=== PATIENT | male | born 1990 ===

== ENCOUNTER 2020-07-17 20:56 | Emergency (ER) | payer OTHER, SELFPAY ==
--- NOTE | ~2020-07-17 | XR_ITS ---
EXAMINATION: XR CHEST CLINICAL INFORMATION: Chest pain COMPARISON: Chest 10/20/2019 TECHNIQUE: Frontal view of the chest was obtained. FINDINGS: No significant abnormality is noted involving the heart, lungs, mediastinum, bony thorax or soft tissues. XR/XR chest 1V IMPRESSION: Unremarkable chest examination.
--- NOTE | 2020-07-17 21:14 | ECG_ITS ---
Test Reason : CP Blood Pressure : / mmHG Vent. Rate : 069 BPM Atrial Rate : 069 BPM P-R Int : 116 ms QRS Dur : 096 ms QT Int : 380 ms P-R-T Axes : 014 073 053 degrees QTc Int : 407 ms Normal sinus rhythm Nonspecific ST abnormality Abnormal ECG When compared with ECG of 20-OCT-2019 20:29, No significant change was found Referred By: Generic ED Physician Electronically Signed By:JOCELIN FRIAS MD
[2020-07-17 21:46] VITALS: BP 105/67; PULSE 74; RESP 18; TEMP 36.8; O2SAT 97; BMI 22.2
[2020-07-17 23:13] LABS: MANUAL DIFF FLAG NO
[2020-07-17 23:15] LABS: Basophils Percent Auto 0.4 % (0-2); Eosinophils Absolute Auto 0.2 X10*3/uL (0.0-0.4); Eosinophils Percent Auto 3.1 % (0-4); Hematocrit 39.5 % (42-52); Hemoglobin 13.8 g/dl (14.0-18.0); Imm Gran Abs Auto 0.02 X10*3/uL (0.00-0.03); Imm Gran Pct Auto 0.3 % (0.0-0.4); Lymphocytes Absolute Auto 1.7 X10*3/uL (1.2-4.9); Lymphocytes Percent Auto 22.6 % (20-40); Mean Corpuscular HGB Conc 34.9 g/dl (31.0-36.0); Mean Corpuscular Hemoglobin 32.2 pg (27.0-33.0); Mean Corpuscular Volume 92.3 fL (80-98); Mean Platelet Volume 10.8 fL (9.4-12.4); Monocytes Absolute Auto 0.7 X10*3/uL (0.1-1.2); Monocytes Percent Auto 9.3 % (2-11); Neutrophils Absolute Auto 4.7 X10*3/uL (2.0-8.3); Neutrophils Percent Auto 64.3 % (45-73); Platelet Count 157 X10*3/uL (160-400); Red Blood Count 4.28 X10*6/uL (4.60-5.80); Red Cell Distribution Width 11.6 % (11.0-16.0); White Blood Count 7.4 X10*3/uL (4.8-10.8)
[2020-07-17 23:39] LABS: Anion Gap 11 (12-20); Blood Urea Nitrogen 18 mg/dL (9-16); Calcium 9.1 mg/dL (8.4-10.2); Carbon Dioxide 26 mmol/L (22-29); Chloride 106 mmol/L (96-108); Creatinine Clr Calc Pharmacy 110.2; Estimated Glomerular Filt Rate > 60; Glucose Random 83 mg/dL (60-115); Potassium 3.9 mmol/L (3.3-5.1); Sodium 139 mmol/L (135-145)
[2020-07-17 23:46] LABS: Troponin-I High Sensitivity < 3.5 ng/L (<3.5-35.0)
== END 2020-07-18 03:15 | disposition left against medical advice (07) ==
PROVIDERS: Emergency Provider Emergency Medicine; PCP Internal Medicine
DX: R07.9 Chest pain, unspecified (principal); J30.2 Other seasonal allergic rhinitis
CPT/HCPCS: 36415; 71045; 80048; 84484; 85025; 93005; 99283

== ENCOUNTER 2020-08-13 13:32 | Emergency (ER) | payer OTHER, SELFPAY ==
--- NOTE | ~2020-08-13 | XR_ITS ---
EXAMINATION: XR SHOULDER, RIGHT CLINICAL INFORMATION: Fall, trauma, pain COMPARISON: Chest radiographs 08/13/2020 TECHNIQUE: Right shoulder is imaged in 3 views. FINDINGS: There is no fracture, dislocation, destructive process. The acromioclavicular alignment is normal. The right lung apex is clear and shows no pneumothorax or pleural reaction. XR/XR shoulder RT min 2V IMPRESSION: Normal right shoulder.
--- NOTE | ~2020-08-13 | CT_ITS ---
EXAMINATION: CT BRAIN AND CT FACIAL BONES WITHOUT CONTRAST. CLINICAL INFORMATION: Right-sided facial pain. Fall. COMPARISON: None TECHNIQUE: 5 mm thin axial and reformatted 2 mm thin sagittal and coronal images of brain were obtained. Subsequently axial 3 mm thin and reformatted 1.5 mm thin sagittal and coronal images of facial bones were obtained. DLP 1019 mGy. FINDINGS: Brain: There is no acute intra-axial, extra-axial bleed, masses or midline shift there is no acute infarction in evolution. The cerda to white matter differences maintained. The lateral ventricles are symmetrical in size and configuration without enlargement. Bone windows reveal no calvarial abnormality. Bilateral paranasal sinuses and mastoid air cells are well-aerated. Facial bones: There is no maxillofacial, nasal or mandibular bone fractures. Bilateral paranasal sinuses and drainage pathways are widely patent. Bilateral mastoid air cells are well-aerated as well. Normal symmetry of bilateral TM joints. The mandible is intact without any fracture or loosening. The soft tissues are normal. Julys cranial vertebral junction, C1 size C2 alignment is normal. The upper cervical spine is normal. Visualized maxillofacial, mandible and nasal soft tissues are normal. CT/CT facial bones wo con IMPRESSION: No acute intracranial process seen. No maxillofacial, nasal bone or mandibular fractures. The soft tissues are normal.
--- NOTE | ~2020-08-13 | XR_ITS ---
EXAMINATION: XR CHEST CLINICAL INFORMATION: Near syncope COMPARISON: Chest radiographs 07/17/2020, 10/20/2019 TECHNIQUE: Chest is imaged in upright AP x2 views and a lateral projection. FINDINGS: The lungs are clear. There is mild hyperinflation versus good inspiratory effort. No bronchiolar wall thickening. There is no pneumothorax, pleural reaction, airspace consolidation, or groundglass opacity. The costophrenic sulci are well-defined. The heart is normal in size. The hilar and mediastinal contours and bony structures are unremarkable. XR/XR chest 2V IMPRESSION: Unremarkable examination.
--- NOTE | ~2020-08-13 | CT_ITS ---
EXAMINATION: CT BRAIN AND CT FACIAL BONES WITHOUT CONTRAST. CLINICAL INFORMATION: Right-sided facial pain. Fall. COMPARISON: None TECHNIQUE: 5 mm thin axial and reformatted 2 mm thin sagittal and coronal images of brain were obtained. Subsequently axial 3 mm thin and reformatted 1.5 mm thin sagittal and coronal images of facial bones were obtained. DLP 1019 mGy. FINDINGS: Brain: There is no acute intra-axial, extra-axial bleed, masses or midline shift there is no acute infarction in evolution. The cerda to white matter differences maintained. The lateral ventricles are symmetrical in size and configuration without enlargement. Bone windows reveal no calvarial abnormality. Bilateral paranasal sinuses and mastoid air cells are well-aerated. Facial bones: There is no maxillofacial, nasal or mandibular bone fractures. Bilateral paranasal sinuses and drainage pathways are widely patent. Bilateral mastoid air cells are well-aerated as well. Normal symmetry of bilateral TM joints. The mandible is intact without any fracture or loosening. The soft tissues are normal. Julys cranial vertebral junction, C1 size C2 alignment is normal. The upper cervical spine is normal. Visualized maxillofacial, mandible and nasal soft tissues are normal. CT/CT head/brain wo con IMPRESSION: No acute intracranial process seen. No maxillofacial, nasal bone or mandibular fractures. The soft tissues are normal.
[2020-08-13 13:46] VITALS: BP 116/84; BP 125/75; PULSE 78; PULSE 92; RESP 14; O2SAT 100; BMI 22.4
--- NOTE | 2020-08-13 13:47 | ECG_ITS ---
Test Reason : SYNCOPE Blood Pressure : / mmHG Vent. Rate : 066 BPM Atrial Rate : 066 BPM P-R Int : 124 ms QRS Dur : 092 ms QT Int : 372 ms P-R-T Axes : 072 057 040 degrees QTc Int : 389 ms Normal sinus rhythm Normal ECG When compared with ECG of 17-JUL-2020 21:24, No significant change was found Referred By: Lore Giles Electronically Signed By:EDGAR RODRIGUEZ
--- NOTE | 2020-08-13 13:51 | ED_ITS ---
HPI - Syncope General Chief Complaint: Syncope Stated Complaint: SYNCOPE Time Seen by Provider: 08/13/20 13:39 Source: patient and EMS Mode of arrival: EMS Limitations: no limitations History of Present Illness HPI narrative: 29 yo male who tells me he was standing in the [employer] when he started to feel lightheaded. He was going to sit down but fell to the ground d/t the dizziness striking his right side of his head, RUE and left hand. Denies LOC. Per EMS bystanders became concerned and threw water on the patient to rouse him. Patient tells me I absolutely did not pass out and remember everything. NO other pre fall symptoms such as palpitations, SOB, weakness, DILL, abdominal pain. No incontinence or shaking noted by bystanders. On arrival patient c/o RUE pain. Deneis DILL, vision changes, neck pain, back pain, chest pain or abdominal pain. Unsure of last tetanus. Per EMS patient initial BG 54. Gave dose of IM glucagon [employer]. Denies substance use. Does take pain medication daily for chronic pain but insure of name. Related Data Allergies Allergy/AdvReac Type Severity Reaction Status Date / Time APPLE JUICE AdvReac Unknown DIARRHEA Uncoded 11/14/19 16:44 Review of Systems Review of Systems: Yes all other systems are reviewed and are negative Constitutional: Constitutional: Reports no additional constitutional complaints, Denies body ache(s), Denies chills, Denies fever(s), Denies headache(s) and Denies weakness Eyes: Eyes: Reports no additional eye complaints and Denies change in vision ENT: Reports system reviewed and no additional complaints, except as documented, Denies dizziness, Denies headache(s), Denies nasal congestion, Denies nasal discharge and Denies neck pain Cardiovascular: Cardiovascular: Reports no additional cardiovascular complaints, Denies chest pain, Denies leg edema and Denies dyspnea Respiratory: Respiratory: Reports no additional respiratory complaints, Denies cough and Denies dyspnea Gastrointestinal: Gastrointestinal: Reports no additional gastrointestinal complaints, Denies abdominal pain, Denies diarrhea, Denies nausea and Denies vomiting Genitourinary: Genitourinary: Denies urinary incontinence Musculoskeletal: Musculoskeletal: Reports no additional musculoskeletal complaints, Denies back pain, Reports arthralgias, Denies joint swelling, Denies neck pain, Denies numbness and Denies tingling Integumentary/Breasts: Skin/Breast: Reports system reviewed and no additional complaints, except as docu and Denies rash Neurologic: Reports system reviewed and no additional complaints, except as documented, Denies Abnormal speech present, Denies dizziness, Denies headache(s), Denies numbness, Denies tingling and Denies weakness PMFSH Past Medical History Attestation statement: The following information was validated with the patient. Source: old records reviewed and nursing notes reviewed Medical History Asthma Social History Social History Advance Directives: Yes Advance Directives Information Provided: Yes Advance Directives on File: No Physical Exam Vital Signs: Vital Signs: Last Vital Signs Pulse 78 08/13/20 13:46 Resp 14 08/13/20 13:46 BP 125/75 08/13/20 13:46 Pulse Ox 100 08/13/20 13:46 Body Mass Index 22.4 Const: General: cooperative, healthy appearing, comfortable and no acute distress Orientation/consciousness: patient oriented x3 Limitations: no limitations HENMT: Head: Yes normal to inspection Head images: 1. small abrasion, No laceration/crepitus or bogginess Ears: hearing grossly normal bilaterally General nose exam: Normal external nose present Face and sinus: Yes normal facial exam Mouth: Normal oral and palatal mucosa present Throat: Yes posterior oropharynx normal Eyes: General: appearance normal, both eyes and all related structures Pu pils: Equal, round and reactive pupils present Neck: Other: No midline tenderness/step offs or deformities Neck: Yes normal visual inspection, Yes full ROM and Yes no lymphadenopathy Chest: Chest palpation & inspection: normal inspection of the chest Chest/axillae images: 1. abrasion with mild tenderness FROM Resp: Effort & Inspection: normal respiratory effort Auscultation: clear to auscultation bilaterally Cardio: Rate: regular rate Rhythm: regular rhythm Peripheral pulses: Peripheral pulses 2+ throughout GI: Inspection: Yes normal to inspection Palpation (GI): Soft to palpation and nontender Auscultation: normal bowel sounds Back/Spine/Pelvis: Thoracic/Lumbar Spine: thoracic and lumbar spine normal to inspection Skin: General skin exam: no rashes or lesions noted Neuro: General: patient oriented x3, no focal motor deficits and normal sensation to monofilament Cranial nerves: Yes CN's II-XII intact bilaterally, Yes Equal, round and reactive pupils present, Yes Bilaterally intact EOM present, Yes Nystagmus not present, Yes Normal facial strength present and Yes Midline tongue present Cognition (Neuro): normal cognition Speech: No Abnormal speech present Motor exam (neuro): 5/5 motor strength present throughout Sensory Exam: Normal double simultaneous stimulation for sensation Coordination: [id number] test normal and [id number] test normal Extrem: General: Yes normal to inspection, Yes no pedal edema and Yes no calf tenderness Elbow/forearm/wrist images: 1. abrasion with FROM 2. small abrasion w/ FROM Course Course Course Narrative: 29 yo male here after what was initially reported as syncope but after assessing patient he tells me I did pass out and has memory of entire event. Preceded by feeling lightheaded and dizzy with no other symptoms. Mild hypoglycemia on arrival, received glucagon by ems and approved on arrival. Multiple abrasions noted. Normal neuro exam. HD stable. Will need labs, EKG, CXR/shoulder x-ray, CT head/facial bones. 1600-Imaging of head/face/chest and right shoulder all unremarkable. EKG and troponin with no ischemic findings. All other labs negative. Patient A&Ox4. Mom here at bedside. Patient insistent no complete syncope and remembers all that happened. Abrasions cleaned by nursing. Blood sugar low for EMS but several blood sugars done here and stable. Reviewed small, frequent meals with patient. He tells me he ate dinner last night then worked 3rd shift without eating before leaving work and going to [employer]. Reviewed worrisome signs/symptoms with patient and when to return to ED. Comfortable with discharge home. MDM - Syncope MDM Narrative Medical decision making narrative: electrolyte abnormality, acs Differential Diagnosis Differential diagnosis: Likely syncope due to orthostatic hypotension and vasovagal syncope Medical Records Attestation: I reviewed the patient's medical records. Lab Data Attestation: I reviewed the patient's lab results. Result diagrams: 08/13/20 14:54 08/13/20 14:54 Labs: Lab Results 08/13/20 08/13/20 08/13/20 Range/Units 13:48 14:48 14:54 WBC 6.6 (4.8-10.8) X10*3/uL RBC 4.99 (4.60-5.80) X10*6/uL Hgb 15.8 (14.0-18.0) g/dl Hct 47.1 (42-52) % MCV 94.4 (80-98) fL MCH 31.7 (27.0-33.0) pg MCHC 33.5 (31.0-36.0) g/dl RDW 11.8 (11.0-16.0) % Plt Count 187 (160-400) X10*3/uL MPV 10.4 (9.4-12.4) fL Immature Gran % (Auto) 0.2 (0.0-0.4) % Neut % (Auto) 72.6 (45-73) % Lymph % (Auto) 14.1 L (20-40) % [place] % (Auto) 7.3 (2-11) % Eos % (Auto) 5.0 H (0-4) % Baso % (Auto) 0.8 (0-2) % Lymph # (Auto) 0.9 L (1.2-4.9) X10*3/uL [place] # (Auto) 0.5 (0.1-1.2) X10*3/uL Eos # (Auto) 0.3 (0.0-0.4) X10*3/uL Baso # (Auto) 0.1 (0.0-0.2) X10*3/uL Abs Immat Gran (auto) 0.01 (0.00-0.03) X10*3/uL Absolute Neuts (auto) 4.8 (2.0-8.3) X10*3/uL Absolute Nucleated RBC 0.000 (0.0-0.012) X10*3/uL Nucleated RBC % (auto) 0.0 (0.0-0.2) /100WBC Sodium (135-145) mmol/L Potassium (3.3-5.1) mmol/L Chloride (96-108) mmol/L Carbon Dioxide (22-29) mmol/L Anion Gap (12-20) BUN (9-16) mg/dL Creatinine (0.5-1.4) mg/dL Estim Creat Clear Calc Estimated GFR POC Glucose 86 98 (60-115) mg/dL Random Glucose (60-115) mg/dL Lactic Acid (0.5-2.0) mmol/L Calcium (8.4-10.2) mg/dL Magnesium (1.6-2.6) mg/dL Total Bilirubin (0.0-1.0) mg/dL Direct Bilirubin (0.0-0.5) mg/dL AST (5-37) U/L ALT (0-40) U/L Alkaline Phosphatase (39-117) U/L Troponin I High Sens (<3.5-35.0) ng/L Total Protein (6.5-8.0) g/dL Albumin (3.5-5.0) g/dL 08/13/20 08/13/20 08/13/20 Range/Units 14:54 14:54 14:54 WBC (4.8-10.8) X10*3/uL RBC (4.60-5.80) X10*6/uL Hgb (14.0-18.0) g/dl Hct (42-52) % MCV (80-98) fL MCH (27.0-33.0) pg MCHC (31.0-36.0) g/dl RDW (11.0-16.0) % Plt Count (160-400) X10*3/uL MPV (9.4-12.4) fL Immature Gran % (Auto) (0.0-0.4) % Neut % (Auto) (45-73) % Lymph % (Auto) (20-40) % [place] % (Auto) (2-11) % Eos % (Auto) (0-4) % Baso % (Auto) (0-2) % Lymph # (Auto) (1.2-4.9) X10*3/uL [place] # (Auto) (0.1-1.2) X10*3/uL Eos # (Auto) (0.0-0.4) X10*3/uL Baso # (Auto) (0.0-0.2) X10*3/uL Abs Immat Gran (auto) (0.00-0.03) X10*3/uL Absolute Neuts (auto) (2.0-8.3) X10*3/uL Absolute Nucleated RBC (0.0-0.012) X10*3/uL Nucleated RBC % (auto) (0.0-0.2) /100WBC Sodium 141 (135-145) mmol/L Potassium 4.6 (3.3-5.1) mmol/L Chloride 104 (96-108) mmol/L Carbon Dioxide 30 H (22-29) mmol/L Anion Gap 12 (12-20) BUN 13 (9-16) mg/dL Creatinine 0.88 (0.5-1.4) mg/dL Estim Creat Clear Calc 131.1 Estimated GFR > 60 POC Glucose (60-115) mg/dL Random Glucose 65 (60-115) mg/dL Lactic Acid 0.9 (0.5-2.0) mmol/L Calcium 10.2 D (8.4-10.2) mg/dL Magnesium 1.9 (1.6-2.6) mg/dL Total Bilirubin 1.2 H (0.0-1.0) mg/dL Direct Bilirubin 0.4 (0.0-0.5) mg/dL AST 13 (5-37) U/L ALT 9 (0-40) U/L Alkaline Phosphatase 54 (39-117) U/L Troponin I High Sens < 3.5 (<3.5-35.0) ng/L Total Protein 7.2 (6.5-8.0) g/dL Albumin 4.6 (3.5-5.0) g/dL Imaging Data Chest x-ray: Attestation: I personally reviewed and interpreted this imaging study as follows: Radiologist's impression: EXAMINATION: XR CHEST CLINICAL INFORMATION: Near syncope COMPARISON: Chest radiographs 07/17/2020, 10/20/2019 TECHNIQUE: Chest is imaged in upright AP x2 views and a lateral projection. FINDINGS: The lungs are clear. There is mild hyperinflation versus good inspiratory effort. No bronchiolar wall thickening. There is no pneumothorax, pleural reaction, airspace consolidation, or groundglass opacity. The costophrenic sulci are well-defined. The heart is normal in size. The hilar and mediastinal contours and bony structures are unremarkable. XR/XR chest 2V IMPRESSION: Unremarkable examination. shoulder right xray: Attestation: I personally reviewed and interpreted this imaging study as follows: Radiologist's impression: EXAMINATION: XR SHOULDER, RIGHT CLINICAL INFORMATION: Fall, trauma, pain COMPARISON: Chest radiographs 08/13/2020 TECHNIQUE: Right shoulder is imaged in 3 views. FINDINGS: There is no fracture, dislocation, destructive process. The acromioclavicular alignment is normal. The right lung apex is clear and shows no pneumothorax or pleural reaction. XR/XR shoulder RT min 2V IMPRESSION: Normal right shoulder. CT head/facial bones: Attestation: I personally reviewed and interpreted this imaging study as f apurvas: Radiologist's impression: FINDINGS: Brain: There is no acute intra-axial, extra-axial bleed, masses or midline shift there is no acute infarction in evolution. The cerda to white matter differences maintained. The lateral ventricles are symmetrical in size and configuration without enlargement. Bone windows reveal no calvarial abnormality. Bilateral paranasal sinuses and mastoid air cells are well-aerated. Facial bones: There is no maxillofacial, nasal or mandibular bone fractures. Bilateral paranasal sinuses and drainage pathways are widely patent. Bilateral mastoid air cells are well-aerated as well. Normal symmetry of bilateral TM joints. The mandible is intact without any fracture or loosening. The soft tissues are normal. Julys cranial vertebral junction, C1 size C2 alignment is normal. The upper cervical spine is normal. Visualized maxillofacial, mandible and nasal soft tissues are normal. CT/CT facial bones wo con IMPRESSION: No acute intracranial process seen. No maxillofacial, nasal bone or mandibular fractures. The soft tissues are normal. ECG Data Attestation: I personally reviewed and interpreted this ECG as follows: ECG interpretation date: 08/13/20 ECG interpretation time: 14:04 Interpretation: NSR with rate 66, normal pr, normal qrs, normal qtc Discharge Plan Discharge Clinical Impression: Near syncope, Abrasion, Contusion of right shoulder Patient Disposition: Home, Self-Care Instructions: Contusion in Adults (ED), Abrasion (ED), Near Syncope (ED) Additional Instructions: Your x-rays of your shoulder and chest showed no bony abnormality. CT scan of your head and face also were negative Lab work and EKG looked normal His blood sugar was mildly low for the ambulance but here it has been normal Eat small, frequent meals Keep abrasions clean and dry with topical antibiotic ointment Referrals: Sid Darshana,Susy, MD [Primary Care Provider] - 2 days Stand Alone Forms: Work/School Release Interventions: ED Discharge Assessment Last Done: 08/13/20 16:30 Discharge Date/Time: 08/13/20 16:31
[2020-08-13 14:01] LABS: Glucose, Whole Blood 86 mg/dL (60-115)
[2020-08-13 14:51] LABS: Glucose, Whole Blood 98 mg/dL (60-115)
[2020-08-13 14:59] LABS: MANUAL DIFF FLAG NO
[2020-08-13 15:04] LABS: Basophils Absolute Auto 0.1 X10*3/uL (0.0-0.2); Basophils Percent Auto 0.8 % (0-2); Eosinophils Absolute Auto 0.3 X10*3/uL (0.0-0.4); Hematocrit 47.1 % (42-52); Hemoglobin 15.8 g/dl (14.0-18.0); Imm Gran Abs Auto 0.01 X10*3/uL (0.00-0.03); Imm Gran Pct Auto 0.2 % (0.0-0.4); Lymphocytes Absolute Auto 0.9 X10*3/uL (1.2-4.9); Lymphocytes Percent Auto 14.1 % (20-40); Mean Corpuscular HGB Conc 33.5 g/dl (31.0-36.0); Mean Corpuscular Hemoglobin 31.7 pg (27.0-33.0); Mean Corpuscular Volume 94.4 fL (80-98); Mean Platelet Volume 10.4 fL (9.4-12.4); Monocytes Absolute Auto 0.5 X10*3/uL (0.1-1.2); Monocytes Percent Auto 7.3 % (2-11); Neutrophils Absolute Auto 4.8 X10*3/uL (2.0-8.3); Neutrophils Percent Auto 72.6 % (45-73); Platelet Count 187 X10*3/uL (160-400); Red Blood Count 4.99 X10*6/uL (4.60-5.80); Red Cell Distribution Width 11.8 % (11.0-16.0); White Blood Count 6.6 X10*3/uL (4.8-10.8)
[2020-08-13 15:31] LABS: Lactic Acid 0.9 mmol/L (0.5-2.0)
[2020-08-13] MEDS: Diphth,Pertus(ACell),Tet Adult 0.5 ML SYRINGE IM (15:34)
[2020-08-13 15:36] LABS: Alanine Aminotransferase 9 U/L (0-40); Albumin Level 4.6 g/dL (3.5-5.0); Alkaline Phosphatase 54 U/L (39-117); Anion Gap 12 (12-20); Aspartate Amino Transferase 13 U/L (5-37); Bilirubin Direct 0.4 mg/dL (0.0-0.5); Bilirubin Total 1.2 mg/dL (0.0-1.0); Blood Urea Nitrogen 13 mg/dL (9-16); Calcium 10.2 mg/dL (8.4-10.2); Carbon Dioxide 30 mmol/L (22-29); Chloride 104 mmol/L (96-108); Creatinine Clr Calc Pharmacy 131.1; Estimated Glomerular Filt Rate > 60; Glucose Random 65 mg/dL (60-115); Magnesium 1.9 mg/dL (1.6-2.6); Potassium 4.6 mmol/L (3.3-5.1); Sodium 141 mmol/L (135-145); Total Protein 7.2 g/dL (6.5-8.0)
[2020-08-13 15:41] LABS: Troponin-I High Sensitivity < 3.5 ng/L (<3.5-35.0)
== END 2020-08-13 16:31 | disposition home or self-care (01) ==
PROVIDERS: Nurse Practitioner Family; Emergency Provider Emergency Medicine; PCP Internal Medicine
DX: R55 Syncope and collapse (principal); S00.211A Abrasion of right eyelid and periocular area, initial encounter; S40.011A Contusion of right shoulder, initial encounter; I95.9 Hypotension, unspecified; J45.909 Unspecified asthma, uncomplicated; W19.XXXA Unspecified fall, initial encounter; Y92.513 Shop (commercial) as the place of occurrence of the external cause; Y93.9 Activity, unspecified; Y99.9 Unspecified external cause status
CPT/HCPCS: 36415; 70450; 70486; 71046; 73030; 80048; 80076; 82947; 83605; 83735; 84484; 85025; 90471; 90715; 93005; 99283; 99285

== ENCOUNTER 2021-01-05 11:55 | Outpatient (REF) | payer OTHER, SELFPAY ==
[2021-01-06 09:29] LABS: HBS Num1 13.81 mIU/mL (0-7.99); HBsAGNum1 0.16 S/CO (0.00-0.99); HIV AB/AG Nonreactive (Nonreactive); HIV Num 1 0.05 S/CO (0.00-0.99); Hepatitis B Surface Antigen Negative (Negative); ~HepC Num1 0.05 S/CO (0.00-0.79); ~Hepatitis B Surface Antibody REACTIVE (Nonreactive); ~Hepatitis C Antibody Nonreactive (Nonreactive)
[2021-01-06 09:44] LABS: HBc Num1 0.06 S/CO (0.00-0.79); Hepatitis B Core Antibody Nonreactive (Nonreactive)
[2021-01-06 10:11] LABS: Syphilis Screen Reactive (Nonreactive)
[2021-01-19 13:31] LABS: T.Pallidum Particle Agg Test Reactive (Nonreactive)
== END 2021-01-05 11:56 | disposition home or self-care (01) ==
LOC: HO.LAB 11:55
PROVIDERS: Visit Provider Nurse Practitioner Family
DX: Z01.84 Encounter for antibody response examination (principal); Z11.4 Encounter for screening for human immunodeficiency virus [HIV]; Z11.3 Encounter for screening for infections with a predominantly sexual mode of transmission; Z11.59 Encounter for screening for other viral diseases
CPT/HCPCS: 36415; 86592; 86704; 86706; 86780; 86803; 87340; 87389

== ENCOUNTER 2021-01-11 15:33 | Outpatient (REF) | payer OTHER, SELFPAY ==
[2021-01-12 09:20] LABS: CT PCR NOT DETECTED (Not Detect.); NG PCR NOT DETECTED (Not Detect.)
== END 2021-01-11 15:34 | disposition home or self-care (01) ==
LOC: HO.LAB 15:33
PROVIDERS: PCP Internal Medicine; Visit Provider Nurse Practitioner Family
DX: Z11.3 Encounter for screening for infections with a predominantly sexual mode of transmission (principal)
CPT/HCPCS: 87491; 87591

== ENCOUNTER 2021-05-05 08:43 | Outpatient (REF) | payer OTHER, SELFPAY ==
[2021-05-05 10:20] LABS: Syphilis Screen Reactive (Nonreactive)
[2021-05-05 11:48] LABS: CT PCR NOT DETECTED (Not Detect.); NG PCR NOT DETECTED (Not Detect.)
[2021-05-10 19:52] LABS: Treponema pallidum Ab FTA ABS Reactive (Nonreactive)
[2021-05-11 23:27] LABS: Chlamydia Pneumoniae IgA <1:16 titer (<1:16); Chlamydia Pneumoniae IgM <1:10 titer (<1:10); Chlamydia Psittaci IgA <1:16 titer (<1:16); Chlamydia Psittaci IgG <1:64 titer (<1:64); Chlamydia Psittaci IgM <1:10 titer (<1:10); Chlamydia Trachomatis IgA <1:16 titer (<1:16); Chlamydia Trachomatis IgG <1:64 titer (<1:64); Chlamydia Trachomatis IgM <1:10 titer (<1:10)
[2021-05-12 10:58] LABS: RPR Quantitative Reactive 1:2 (Nonreactive); T.Pallidum Particle Agg Test Reactive (Nonreactive)
== END 2021-05-05 08:44 | disposition home or self-care (01) ==
LOC: HO.LAB 08:43
PROVIDERS: Absent Provider Nurse Practitioner Acute Care; PCP Internal Medicine; Visit Provider Internal Medicine
DX: A53.0 Latent syphilis, unspecified as early or late (principal); Z11.3 Encounter for screening for infections with a predominantly sexual mode of transmission
CPT/HCPCS: 36415; 86592; 86631; 86632; 86780; 87491; 87591

== ENCOUNTER 2022-03-25 12:51 | Emergency (ER) | payer OTHER, SELFPAY ==
[2022-03-25 13:12] VITALS: BP 125/80; PULSE 82; RESP 18; TEMP 36.6; O2SAT 99; BMI 21.7
--- NOTE | 2022-03-25 13:15 | ED.GENADULT ---
HPI - General Adult General Chief complaint: Wound/Laceration Stated complaint: Lac on right hand Related Data Allergies Allergy/AdvReac Type Severity Reaction Status Date / Time APPLE JUICE AdvReac Unknown DIARRHEA Uncoded 04/29/21 10:53 [facility] Past Medical History Medical History (Updated 04/29/21 @ 10:55 by Araseli Gilliland MD) Asthma Pain in penis Surgical History No pertinent past surgical history Family History Family History Mother No problems noted. Father No problems noted. Other Family history of diabetes mellitus (DM) Social History Social History Housing: House Alcohol intake: current Alcohol intake frequency: holidays/special occasions only Patient Tobacco Use Status: Current everyday Tobacco user Tobacco use type: Cigarette Cigarettes Per Day: 5 e-Cigarette/Vaping Use: Never Used Second Hand Smoke Exposure: Yes service: No Current occupational status: employed Current occupational exposures/hazards: No Cognitive needs: No Hearing needs: No Vision needs: No Physical Exam ED Vital Signs: Vital Signs - 24 hr 03/25/22 13:12 Temperature 98 F Pulse Rate 82 Respiratory Rate 18 Blood Pressure 125/80 Pulse Oximetry 99 Oxygen Delivery Method Room Air BMI result Body Mass Index 21.7 Course Course Course Narrative: RME performed by Barbara Parrish PA-C. Patient is a 31 year old male presenting to the emergency department with a laceration to his right thumb. Patient will need sutures. Tetanus ordered. Patient placed back in waiting room pending room availability.
--- NOTE | 2022-03-25 14:21 | ED.WOUNDLAC ---
HPI - Wound/Laceration General Chief Complaint: Wound/Laceration Stated Complaint: Lac on right hand Time Seen by Provider: 03/25/22 13:26 Source: patient Mode of arrival: ambulatory Limitations: no limitations History of Present Illness HPI narrative: 31-year-old male presenting to the ER with complaints of a laceration to his right hand near the base of the thumb that occurred last night with a machete when he was practicing martial arts. He denies any thoughts of foreign bodies, bony tenderness, paresthesias or weakness. He reports he is not up-to-date on tetanus. He denies any other injuries complaints or concerns at this time. Onset (ago): day(s) (Last night) Extremity Location: right: hand (Near the base of the thumb) Place: home Patient tetanus UTD: No Context: accidental Associated symptoms: none Treatments prior to arrival: bandage Related Data Previous Rx's Medication Instructions Recorded cephalexin 500 mg capsule 500 mg PO BID 7 days #14 caps 03/25/22 Allergies Allergy/AdvReac Type Severity Reaction Status Date / Time APPLE JUICE AdvReac Unknown DIARRHEA Uncoded 04/29/21 10:53 Review of Systems Review of Systems: Constitutional : No Fever, No Chills, Cardiovascular : No Chest Pain, No SOB Respiratory : No Dyspnea Gastrointestinal : No abdominal pain Musculoskeletal : No Joint Swelling Skin : positive skin laceration, No Foreign bodies, No rash, No surrounding erythema Neuro : No Weakness, No Numbness/tingling Psych : No SI/HI/thoughts of self injury Yes all other systems are reviewed and are negative [facility] Past Medical History Attestation statement: The following information was validated with the patient. Source: old records reviewed and nursing notes reviewed Medical History Asthma Pain in penis Surgical History No pertinent past surgical history Family History Family History Mother No problems noted. Father No problems noted. Other Family history of diabetes mellitus (DM) Social History Social History Housing: House Alcohol intake: current Alcohol intake frequency: holidays/special occasions only Patient Tobacco Use Status: Current everyday Tobacco user Tobacco use type: Cigarette Cigarettes Per Day: 5 e-Cigarette/Vaping Use: Never Used Second Hand Smoke Exposure: Yes Advance Directives: No Advance Directives Information Provided: No service: No Current occupational status: employed Current occupational exposures/hazards: No Cognitive needs: No Hearing needs: No Vision needs: No Physical Exam Vital Signs: Vital Signs: Last Vital Signs Temp 98 F 03/25/22 13:12 Pulse 82 03/25/22 13:12 Resp 18 03/25/22 13:12 BP 125/80 03/25/22 13:12 Pulse Ox 99 03/25/22 13:12 O2 Del Method 03/25/22 13:12 BMI result Body Mass Index 21.7 vital signs have been reviewed as normal and appeared to be correct. Blood pressure normal Heart rate normal. Respiration rate normal. Temperature normal. Oxygen saturation normal. Appearance: Alert. Oriented X3. No acute distress. Head: Normal external exam. Normocephalic. Atraumatic. Eyes: PERRLA. EOMI. Conjunctiva and sclera normal. Eyelids normal. ENT: Pharynx normal. Uvula midline. Moist mucous membranes. Neck: Normal inspection. Neck supple. FROM. CVS: Normal heart rate and rhythm. Respiratory: No respiratory distress. Painless inspiration. Skin: Skin warm and dry. Normal skin color. Normal skin turgor. to right hand at the base of the thumb pt has a 2 cm intermediate linear laceration no active bleeding or foreign bodies. He has full range of motion of right hand/thumb/wrist. No obvious ligamentous or tendon injury noted. There is no weakness noted. No obvious nerve injury noted. No additional rashes/lesions/lacerations noted. Extremities: Extremities exhibit normal range of motion. Extremities nontender. Neuro: Oriented X 3. No motor deficit. No sensory deficit. Reflexes normal. Normal steady gait. No focal neuro deficits noted. Vascular: + radial pulses. Normal cap refill. No cyanosis noted to upper extremity nails Course Course Course Narrative: RME performed by Barbara Parrish PA-C. Patient is a 31 year old male presenting to the emergency department with a laceration to his right thumb. Patient will need sutures. Tetanus ordered. Patient placed back in waiting room pending room availability. Reevaluation(s) Reevaluation #1: Patient now status post laceration repair with a 7 simple interrupted stitches. Tetanus updated. No imaging indicated at this time. Will DC home with symptomatic treatment antibiotics along with instructions to return in 10-14 days for suture removal and to follow up prior if signs of infection. Patient understands agrees the plan. Procedures Laceration Laceration 1: Site: hand Side (If applicable): right Size (cm): 2 Description: linear Depth: simple, single layer Local Anesthetic: lidocaine 1% Amount of anesthesia used (mL): 5 Pre-repair: wound explored, irrigated extensively and deep structures intact Skin layer closed with: nylon Size (cm): 4-0 Number of sutures: 7 Technique: simple, interrupted Subcutaneous layer closed with: vicryl Discharge Plan Discharge Clinical Impression: Laceration Patient Disposition: Home, Self-Care Instructions: Laceration (ED) Prescriptions: New cephalexin 500 mg capsule 500 mg PO BID 7 Days Qty: 14 0RF Referrals: Mayra Tolentino PA [Emergency Midlevel Provider] - 10 days (For suture removal return within 7-10 days) Araseli Grey MD [Primary Care Provider] - Stand Alone Forms: Work/School Release
[2022-03-25] MEDS: Diphth,Pertus(ACell),Tet Adult 0.5 ML SYRINGE IM (14:30)
== END 2022-03-25 14:33 | disposition home or self-care (01) ==
PROVIDERS: Emergency Provider Student in an Organized Health Care Education/Training Program; PCP Internal Medicine
DX: S61.411A Laceration without foreign body of right hand, initial encounter (principal); W26.0XXA Contact with knife, initial encounter; F17.210 Nicotine dependence, cigarettes, uncomplicated; Y93.75 Activity, martial arts; Y92.39 Other specified sports and athletic area as the place of occurrence of the external cause; Y99.9 Unspecified external cause status
CPT/HCPCS: 12041; 90471; 90715; 99282; 99284

== ENCOUNTER 2022-04-02 11:47 | Emergency (ER) | payer OTHER, SELFPAY ==
[2022-04-02 11:49] VITALS: BP 104/65; PULSE 56; RESP 18; TEMP 36.7; O2SAT 99; BMI 23.7
--- NOTE | 2022-04-02 12:10 | PC.NURSE ---
pt being evaluated by md null in triage. 7 sutures being removed. plan is for dc.
--- NOTE | 2022-04-02 12:14 | ED.WOUNDLAC ---
HPI - Wound/Laceration General Chief Complaint: Skin/Abscess/Foreign Body Stated Complaint: suture removal Time Seen by Provider: 04/02/22 12:13 Source: patient Mode of arrival: ambulatory Limitations: no limitations History of Present Illness HPI narrative: 31-year-old male presents to emergency department after slicing his hand with machete. Patient denies fevers child's cough nausea vomiting diarrhea he states he has been healing well does have minimal pain due to the sutures. 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 Related Data Previous Rx's Medication Instructions Recorded cephalexin 500 mg capsule 500 mg PO BID 7 days #14 caps 03/25/22 Allergies Allergy/AdvReac Type Severity Reaction Status Date / Time APPLE JUICE AdvReac Unknown DIARRHEA Uncoded 04/29/21 10:53 Review of Systems Review of Systems: Review of systems: General: Patient denies any fever chills recent illness or falls Musculoskeletal: Denies back pain or body aches or other injuries HEENT: denies headache, runny nose, ear pain Respiratory: denies shortness of breath, cough Cardiovascular: no chest pain or palpitations : denies dysuria, frequency Abdomen: no nausea vomiting denies abdominal pain Extremities: no swelling, no pain Skin: no diaphoresis Yes all other systems are reviewed and are negative PMFSH Past Medical History Medical History Asthma Pain in penis Surgical History No pertinent past surgical history Family History Family History Mother No problems noted. Father No problems noted. Other Family history of diabetes mellitus (DM) Social History Social History Housing: House Alcohol intake: current Alcohol intake frequency: holidays/special occasions only Patient Tobacco Use Status: Current everyday Tobacco user Tobacco use type: Cigarette Cigarettes Per Day: 5 e-Cigarette/Vaping Use: Never Used Second Hand Smoke Exposure: Yes Advance Directives: No Advance Directives Information Provided: No service: No Current occupational status: employed Current occupational exposures/hazards: No Cognitive needs: No Hearing needs: No Vision needs: No Physical Exam Vital Signs: Vital Signs: Last Vital Signs Temp 98.1 F 04/02/22 11:49 Pulse 56 04/02/22 11:49 Resp 18 04/02/22 11:49 BP 104/65 04/02/22 11:49 Pulse Ox 99 04/02/22 11:49 O2 Del Method 04/02/22 11:49 BMI result Body Mass Index 23.7 Focus on exam of the right hand I did not do a generalized body exam is he is just here for suture removal which was very quick he has 7 sutures with good healing of the wound. Medical Decision Making Medical Decision Making [facility] Narrative: Patient here for suture removal no concerns for infection Differential Diagnosis Differential Diagnoses: The differential diagnosis associated with the presentation includes Cellulitis retained foreign body or nonhealing wound this wound is healing well sutures removed without incident. Admission/Observation Consideration of admission/observation: Escalation of care including admission/observation considered No need as the patient says suture removal Procedures Procedure Narrative Procedure Narrative: Seven well-healing sutures I was able to remove without any incident patient have pain when I removed the 2nd suture but was able tolerate the rest. Discharge Plan Discharge Clinical Impression: Encounter for removal of sutures Patient Disposition: Home, Self-Care Instructions: Stitches Removal (ED) Additional Instructions: Please continue to dress the wound if you have any concerns and was redness swelling or streaking up the hand please return to the ER. Prescriptions: No Action cephalexin 500 mg capsule 500 mg PO BID 7 Days Qty: 14 0RF
== END 2022-04-02 12:20 | disposition home or self-care (01) ==
PROVIDERS: Emergency Provider Student in an Organized Health Care Education/Training Program; PCP Internal Medicine
DX: Z48.02 Encounter for removal of sutures (principal); S61.411D Laceration without foreign body of right hand, subsequent encounter; W26.0XXD Contact with knife, subsequent encounter
CPT/HCPCS: 99282

== ENCOUNTER 2022-06-26 17:20 | Emergency (ER) | payer OTHER, SELFPAY ==
[2022-06-26 18:19] VITALS: BP 110/77; PULSE 76; RESP 20; TEMP 37.2; O2SAT 98; BMI 23.0
[2022-06-26 18:37] LABS: MANUAL DIFF FLAG NO
[2022-06-26 18:38] LABS: Basophils Percent Auto 0.4 % (0-2); Eosinophils Percent Auto 0.4 % (0-4); Hematocrit 44.2 % (42.0-52.0); Hemoglobin 15.4 g/dl (14.0-18.0); Imm Gran Abs Auto 0.02 X10*3/uL (0.00-0.03); Imm Gran Pct Auto 0.2 % (0.0-0.4); Lymphocytes Absolute Auto 1.6 X10*3/uL (1.2-4.9); Lymphocytes Percent Auto 19.1 % (20-40); Mean Corpuscular HGB Conc 34.8 g/dl (31.0-36.0); Mean Corpuscular Hemoglobin 31.6 pg (27.0-33.0); Mean Corpuscular Volume 90.8 fL (80.0-98.0); Mean Platelet Volume 10.4 fL (9.4-12.4); Monocytes Percent Auto 11.9 % (2-11); Neutrophils Absolute Auto 5.7 x10*3/uL (2.0-8.3); Platelet Count 199 X10*3/uL (160-400); Red Blood Count 4.87 X10*6/uL (4.60-5.80); Red Cell Distribution Width 11.6 % (11.0-16.0); White Blood Count 8.3 X10*3/uL (4.8-10.8)
[2022-06-26 18:57] LABS: Alanine Aminotransferase 14 U/L (0-40); Albumin Level 4.7 g/dL (3.5-5.0); Alkaline Phosphatase 50 U/L (39-117); Anion Gap 13 (12-20); Aspartate Amino Transferase 15 U/L (5-37); Bilirubin Total 2.7 mg/dL (0.0-1.0); Blood Urea Nitrogen 10 mg/dL (9-16); Calcium 10.1 mg/dL (8.4-10.2); Carbon Dioxide 29 mmol/L (22-29); Chloride 104 mmol/L (96-108); Creatinine Clr Calc Pharmacy 147.7; Estimated Glomerular Filt Rate > 60; Glucose Random 85 mg/dL (60-115); Potassium 4.6 mmol/L (3.3-5.1); Sodium 141 mmol/L (135-145); Total Protein 7.1 g/dL (6.5-8.0)
--- NOTE | 2022-06-26 22:25 | ED_ITS ---
HPI - Nausea/Vomiting/Diarrhea General Chief complaint: Nausea/Vomiting/Diarrhea Stated complaint: abd pain/vomiting Time Seen by Provider: 06/26/22 20:53 Source: patient Mode of arrival: ambulatory History of Present Illness HPI Narrative: 31-year-old male without significant past medical history presents with complaints of nausea and vomiting and epigastric abdominal discomfort for 3 days as well as reporting positive sick contacts in his family but he denies any diarrhea that they have been having. Patient denies any fever chills or urinary symptoms and states that he has been taking chronic naproxen for bilateral foot pain and continues to drink soda, coffee, spicy foods. Related Data Previous Rx's Medication Instructions Recorded cephalexin 500 mg capsule 500 mg PO BID 7 days #14 caps 03/25/22 omeprazole 40 mg capsule,delayed 40 mg PO DAILY #30 caps 06/26/22 release Allergies Allergy/AdvReac Type Severity Reaction Status Date / Time APPLE JUICE AdvReac Unknown DIARRHEA Uncoded 06/26/22 18:22 Review of Systems Review of Systems: Pertinent positives and negatives as stated in HPI PMFSH Past Medical History Source: nursing notes reviewed Medical History Asthma Pain in penis Surgical History No pertinent past surgical history Family History Family History Mother No problems noted. Father No problems noted. Other Family history of diabetes mellitus (DM) Social History Social History Housing: House Alcohol intake: current Alcohol intake frequency: holidays/special occasions o nly Patient Tobacco Use Status: Current everyday Tobacco user Tobacco use type: Cigarette Cigarettes Per Day: 5 e-Cigarette/Vaping Use: Never Used Second Hand Smoke Exposure: Yes Advance Directives: No Advance Directives Information Provided: No service: No Current occupational status: employed Current occupational exposures/hazards: No Cognitive needs: No Hearing needs: No Vision needs: No Physical Exam Vital Signs: Vital Signs: Last Vital Signs Temp 98.9 F 06/26/22 18:19 Pulse 76 06/26/22 18:19 Resp 20 06/26/22 18:19 BP 110/77 06/26/22 18:19 Pulse Ox 98 06/26/22 18:19 O2 Del Method Room Air 06/26/22 18:19 BMI result Body Mass Index 23.0 VITAL SIGNS: Reviewed. GENERAL: Well developed, well nourished, in no acute distress. HEAD: Normocephalic/atraumatic EYES: PERRLA, EOMI EARS: Ext canals without abnormality NOSE: Nares patent bilateral OROPHARYNX: no oral lesions noted, posterior pharynx clear NECK: Supple, no adenopathy LUNGS: Normal breath sounds. No adventitious sounds or accessory muscle use. SpO2<98> CARDIOVASCULAR: Regular rate and rhythm without noted murmurs ABDOMEN: Soft, mild epigastric discomfort without rebound, non-distended with bowel sounds. MUSCULOSKELETAL: No tenderness, deformities, or effusions noted on gross inspection. EXTREMITIES: No cyanosis, clubbing or edema. SKIN: Inspection of the skin reveals no rashes NEUROLOGIC: Alert and oriented x 4. Strength and sensation to light touch were grossly intact x 4. Medications Administered Discontinued Medications Generic Name Dose Route Start Last Admin Trade Name Freq PRN Reason Stop Dose Admin Al Hydroxide/Mg Hydroxide 30 ml 06/26/22 22:13 06/26/22 22:39 Magnesium Hydrox/Alum Hydrox 30 Ml Oral.Susp PO 06/26/22 22:14 30 ml ONCE ONE Administration Lidocaine HCl 10 ml 06/26/22 22:13 06/26/22 22:39 Lidocaine Hcl Viscous 2 % 15 Ml Solution MUCOUS MEM 06/26/22 22:14 10 ml ONCE ONE Administration Ondansetron HCl 4 mg 06/26/22 22:13 06/26/22 22:39 Ondansetron Odt 4 Mg Tab.Rapdis TRANSLINGU 06/26/22 22:14 4 mg ONCE ONE Administration Sucralfate 1 gm 06/26/22 22:13 06/26/22 22:39 Sucralfate Oral Suspension 1 Gm/10 Ml Oral.Susp PO 06/26/22 22:14 1 gm ONCE ONE Administration Medical Decision Making Medical Decision Making MDM Narrative: 31-year-old male with history and clinical presentation suggestive of gastritis or possible ulcer as patient has been able to tolerate water and his prescription medications but otherwise having discomfort. There is no evidence to suggest infectious etiology viral or bacterial. Patient provided with GI cocktail as well as Carafate and will re-evaluate. Patient is feeling much better and is otherwise discharged home in stable condition. He will be given a prescription for omeprazole. Differential Diagnosis Please see the discussion above Lab Data Please see the discussion above 06/26/22 18:33 06/26/22 18:33 Labs: Lab Results 06/26/22 06/26/22 Range/Units 18:33 18:33 WBC 8.3 (4.8-10.8) X10*3/uL RBC 4.87 (4.60-5.80) X10*6/uL Hgb 15.4 (14.0-18.0) g/dl Hct 44.2 (42.0-52.0) % MCV 90.8 (80.0-98.0) fL MCH 31.6 (27.0-33.0) pg MCHC 34.8 (31.0-36.0) g/dl RDW 11.6 (11.0-16.0) % Plt Count 199 (160-400) X10*3/uL MPV 10.4 (9.4-12.4) fL Immature Gran % (Auto) 0.2 (0.0-0.4) % Neut % (Auto) 68.0 (45-73) % Lymph % (Auto) 19.1 L (20-40) % [place] % (Auto) 11.9 H (2-11) % Eos % (Auto) 0.4 (0-4) % Baso % (Auto) 0.4 (0-2) % Lymph # (Auto) 1.6 (1.2-4.9) X10*3/uL [place] # (Auto) 1.0 (0.1-1.2) X10*3/uL Eos # (Auto) 0.0 (0.0-0.4) X10*3/uL Baso # (Auto) 0.0 (0.0-0.2) X10*3/uL Abs Immat Gran (auto) 0.02 (0.00-0.03) X10*3/uL Absolute Neuts (auto) 5.7 (2.0-8.3) x10*3/uL Absolute Nucleated RBC 0.000 (0.0-0.012) X10*3/uL Nucleated RBC % (auto) 0.0 (0.0-0.2) /100WBC Sodium 141 (135-145) mmol/L Potassium 4.6 (3.3-5.1) mmol/L Chloride 104 (96-108) mmol/L Carbon Dioxide 29 (22-29) mmol/L Anion Gap 13 (12-20) BUN 10 (9-16) mg/dL Creatinine 0.79 (0.5-1.4) mg/dL Estim Creat Clear Calc 147.7 Estimated GFR > 60 Random Glucose 85 (60-115) mg/dL Calcium 10.1 (8.4-10.2) mg/dL Total Bilirubin 2.7 H (0.0-1.0) mg/dL AST 15 (5-37) U/L ALT 14 (0-40) U/L Alkaline Phosphatase 50 (39-117) U/L Total Protein 7.1 (6.5-8.0) g/dL Albumin 4.7 (3.5-5.0) g/dL External Record Review External record reviewed: Outpatient record and Prior outpatient labs Discharge Plan Discharge Clinical Impression: Gastritis Patient Disposition: Home, Self-Care Instructions: Gastritis (ED), Diet for Stomach Ulcers and Gastritis (ED) Additional Instructions: 1. Please start the medication for acid control Return to the ER for any worsening symptoms. Prescriptions: New omeprazole 40 mg capsule,delayed release(DR/EC) 40 mg PO DAILY Qty: 30 0RF No Action cephalexin 500 mg capsule 500 mg PO BID 7 Days Qty: 14 0RF Referrals: Araseli Grey MD [Primary Care Provider] -
[2022-06-26] MEDS: Lidocaine HCl Viscous 2 % 15 ML SOLUTION 10 ML MUCOUS MEM (22:39)
[2022-06-26] MEDS: Sucralfate Oral Suspension 1 GM/10 ML ORAL.SUSP PO (22:39)
[2022-06-26] MEDS: Ondansetron ODT 4 MG TAB.RAPDIS TRANSLINGU (22:39)
[2022-06-26] MEDS: Magnesium Hydrox/Alum Hydrox 30 ML ORAL.SUSP PO (22:39)
[2022-06-26 23:32] VITALS: BP 129/84; PULSE 71; RESP 18; TEMP 36.9; O2SAT 98
== END 2022-06-26 23:40 | disposition home or self-care (01) ==
PROVIDERS: Emergency Provider Student in an Organized Health Care Education/Training Program; PCP Internal Medicine
DX: K29.70 Gastritis, unspecified, without bleeding (principal); R11.2 Nausea with vomiting, unspecified; R10.13 Epigastric pain; F17.210 Nicotine dependence, cigarettes, uncomplicated; Z71.6 Tobacco abuse counseling; Z79.899 Other long term (current) drug therapy
CPT/HCPCS: 36415; 80053; 85025; 99284

== ENCOUNTER 2022-06-28 08:34 | Outpatient (REF) | payer OTHER, SELFPAY ==
[2022-06-28 11:47] LABS: CT PCR NOT DETECTED (Not Detect.); NG PCR NOT DETECTED (Not Detect.)
[2022-06-29 04:22] LABS: Syphilis Screen Reactive (Nonreactive)
[2022-06-29 06:04] LABS: HBS Num1 12.84 mIU/mL (0-7.99); HBc Num1 0.07 S/CO (0.00-0.79); HBsAGNum1 0.35 S/CO (0.00-0.99); HIV AB/AG Nonreactive (Nonreactive); HIV Num 1 0.06 S/CO (0.00-0.99); Hepatitis A Antibody IgM 0.16 Index (0-0.79); Hepatitis B Core Antibody Nonreactive (Nonreactive); Hepatitis B Surface Antigen Negative (Negative); ~HepC Num1 0.07 S/CO (0.00-0.79); ~Hepatitis A Antibody IgM Nonreactive (Nonreactive); ~Hepatitis B Surface Antibody REACTIVE (Nonreactive); ~Hepatitis C Antibody Nonreactive (Nonreactive)
[2022-07-02 14:22] LABS: RPR Quantitative Reactive 1:4 (Nonreactive); T.Pallidum Particle Agg Test Reactive (Nonreactive)
== END 2022-06-28 08:35 | disposition home or self-care (01) ==
LOC: HO.LAB 08:34
PROVIDERS: PCP Internal Medicine; Visit Provider Internal Medicine
DX: Z11.3 Encounter for screening for infections with a predominantly sexual mode of transmission (principal); Z11.4 Encounter for screening for human immunodeficiency virus [HIV]
CPT/HCPCS: 0353U; 36415; 86592; 86704; 86706; 86709; 86780; 86803; 87340; 87389

== ENCOUNTER → 2022-08-24 07:59 | Outpatient (BNVA) | payer OTHER, SELFPAY | PROVIDERS: PCP Internal Medicine; Visit Provider Physician Assistant | DX: R10.13 Epigastric pain (principal); R17 Unspecified jaundice | CPT/HCPCS: 99202 ==

== ENCOUNTER 2022-08-25 10:24 | Outpatient (REF) | payer OTHER, SELFPAY | END 2022-08-25 10:25 | disposition home or self-care (01) | LOC: HO.LNP 10:24 | PROVIDERS: Visit Provider Physician Assistant | DX: A04.8 Other specified bacterial intestinal infections (principal) | CPT/HCPCS: 87338 ==

== ENCOUNTER 2022-09-08 09:00 | Outpatient (AMB) | payer OTHER, SELFPAY ==
[2022-09-08 09:03] VITALS: BP 102/68; PULSE 57; O2SAT 98; BMI 21.0
--- NOTE | 2022-09-08 09:03 | A.OFFPC_ITS ---
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 Patient of Dr. Lau. Medical history significant for epigastric pain, asthma, elevated bilirubin among others. Patient was seen by Rhonda HILL due to epigastric pain, H pylori stool test came back negative 08/25/2022. Patient was started on omeprazole and sucralfate at GI office, he reports that acid reflux and epigastric pain is better with these medications. He has an upcoming appointment with Rhonda HILL 09/2022. He was also encouraged to complete blood work that was ordered by Rohnda HILL. Patient denies shortness of breath or chest pain. [facility] Medical History Asthma Pain in penis Surgical History No pertinent past surgical history Family History Mother No problems noted. Father No problems noted. Other Family history of diabetes mellitus (DM) Social History Housing: House Alcohol intake: current Alcohol intake frequency: a few times a week Patient Tobacco Use Status: Current everyday Tobacco user Tobacco use type: Cigarette Cigarettes Per Day: 5 e-Cigarette/Vaping Use: Never Used Second Hand Smoke Exposure: Yes Substance Use Type: Marijuana service: No Current occupational status: employed Current occupational exposures/hazards: No Cognitive needs: No Hearing needs: No Vision needs: No Questionnaire Thrive Questionnaire Date Thrive assessed: 06/28/22 AUDIT C Alcohol Use Questionnaire (AUDIT-C) 1. How often do you have a drink containing alcohol?: Monthly or less 2. How many drinks containing alcohol do you have on a typical day when you are drinking?: 1 or 2 3. How often do you have six or more drinks on one occasion?: Never Total Score: 1 Score Reviewed/Action Taken: No OZZIE-7 AMB Questionnaire OZZIE-7 Date OZZIE - 7 assessed: 06/28/22 Source: Developed by Drs. Alvaro New, Debbie Zhang, Zafar Jiménez and colleagues, with an educational sade from [employer]. Review of Systems Const Denies body aches, Denies chills, Denies fever(s) and Denies headache(s) Eyes Denies change in vision ENT Denies dizziness, Denies otalgia, Denies headache(s), Denies nasal discharge, Denies sinus pain and Denies sore throat Card Denies chest pain, Denies edema, Denies lightheadedness and Denies dyspnea Resp Denies cough and Denies dyspnea GI Reports abdominal pain, Denies change in bowel habits, Denies constipation, Reports dyspepsia, Reports heartburn, Denies diarrhea, Denies nausea and Denies vomiting Denies dysuria Musc Denies myalgias Skin/Breast Denies rash Neuro Denies dizziness and Denies headache(s) Physical exam (Primary Care) Vital Signs: Last Vital Signs Pulse 57 09/08/22 09:03 BP 102/68 09/08/22 09:03 Pulse Ox 98 09/08/22 09:03 Oxygen Delivery Method Room Air 09/08/22 09:03 BMI result Body Mass Index 21.0 Tobacco/Smoking Status: Tobacco use Status Tobacco use date assessed 09/08/22 09/08/22 09:07 Patient Tobacco Use Status Current everyday Tobacco 09/08/22 09:07 Tobacco use type Cigarette 09/08/22 09:07 e-Cigarette/Vaping Use Never Used 09/08/22 09:07 Thrive Assessment: Date of Thrive Assessment Date Thrive assessed 06/28/22 09/08/22 09:07 Const General: cooperative and no acute distress Orientation/consciousness: [facility]3 [facility]: Yes normocephalic and Yes atraumatic Mouth: oropharynx normal and moist mucous membranes Throat: Yes posterior oropharynx normal Eyes General: appearance normal, both eyes and all related structures Neck Neck: Yes normal visual inspection and Yes full ROM Resp Effort & Inspection: normal respiratory effort and able to speak in complete sen tences Auscultation: clear to auscultation bilaterally, no crackles, no rales, no rhonchi and no wheezes Cardio Rate: regular rate Rhythm: regular rhythm Heart sounds: S1 normal heart sound present and S2 normal heart sound present GI Palpation (GI): Soft to palpation, not firm, Tenderness to palpation present (GI) in the epigastrum; with no rebound tenderness, no guarding, not rigid and no hepatosplenomegaly Auscultation: normal bowel sounds Skin General skin exam: no rashes or lesions noted Neuro General: patient oriented x3 Gait exam (Neuro): Normal gait present Extrem General: Yes full ROM and No edema Assessment and Plan Assessment & Plan (1) Epigastric pain: Comment: Symptoms responsive to PPI however had not continued Alcohol may likely play a role Code(s): R10.13 - Epigastric pain Plan: H pylori stool test came back negative. Patient is to continue omeprazole and sucralfate as prescribed by [facility]. Keep appointment with GI as scheduled 09/2022. Avoid trigger foods. Do not lay down 2-3 hours after evening meal. Patient agreed with the plan. Medications: Refilled Ventolin HFA 90 mcg/actuation (albuterol sulfate) 2 puffs inhalation Q6H 30 days PRN 8 grams 0RF shortness of breath or wheezing NS Coding Level of Care Code Est Pt Level 3 (52042) Diagnoses Epigastric pain R10.13
== END 2022-09-08 09:18 | disposition home or self-care (01) ==
PROVIDERS: PCP Internal Medicine; Visit Provider Nurse Practitioner Family
DX: R10.13 Epigastric pain (principal)
CPT/HCPCS: 99213

== ENCOUNTER 2022-10-05 08:01 | Outpatient (AMB) | payer OTHER, SELFPAY ==
[2022-10-05 08:07] VITALS: BP 106/66; PULSE 63; BMI 20.5
--- NOTE | 2022-10-05 08:07 | MHC.OFFVIS ---
Intake Vital Signs 10/05/22 08:07 Height 6 ft Weight 151 lb BMI 20.5 BP 106/66 Blood Pressure Location Lt brachial Position Sitting Pulse 63 Intake Visit Reasons: 6 wk fu epigastric pains Intake Note: Patient follow up for epigastric pain. Patient cc: abdominal pain with some bloating on and off, diarrhea come and go and also GERD when he drink some beer. 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 He presents today-says he is doing okay, however-ran out of omeprazole- Omeprazole is responsive however he has increased reflux symptoms with epigastric pain when he drinks beer-he cannot-give any specifics He drinks etoh on weekends- drinks about 8 beers He is not a great historian- Reviewed labs- after discussion- he says he was given a needle for syphilis - he got from touching something- he never took prescribed antibx, that were prescribed- he has no sx- so assumes its gone. He did not update his blood work. He saw his PCP back in August review of her note she had reminded him to have blood work however he did not do so He is not forthcoming- Works in restaurant- No nausea, vomiting, hematemesis, hematochezia, fever or PFSH Medical History Asthma Pain in penis Surgical History No pertinent past surgical history Family History Mother No problems noted. Father No problems noted. Other Family history of diabetes mellitus (DM) Social History Housing: House Alcohol intake: current Alcohol intake frequency: a few times a week Patient Tobacco Use Status: Current everyday Tobacco user Tobacco use type: Cigarette Cigarettes Per Day: 5 e-Cigarette/Vaping Use: Never Used Second Hand Smoke Exposure: Yes Substance Use Type: Marijuana service: No Current occupational status: employed Current occupational exposures/hazards: No Cognitive needs: No Hearing needs: No Vision needs: No Review of Systems Const All systems reviewed & are unremarkable except as noted in HPI and below Card Denies chest pain and Denies dyspnea Resp Denies cough and Denies dyspnea GI Reports abdominal pain (Unable to quantify), Denies bloating, Denies change in bowel habits and Reports heartburn Reports no additional complaints Physical Exam Vital Signs: Last Vital Signs Pulse 63 10/05/22 08:07 BP 106/66 10/05/22 08:07 BMI result Body Mass Index 20.5 Const General: healthy appearing, comfortable, no acute distress and tired appearing Orientation/consciousness: patient oriented x3 Limitations: no limitations Eyes Sclerae: sclerae normal Resp Effort & Inspection: normal respiratory effort and able to speak in complete sentences Skin General skin exam: no rashes or lesions noted Neuro General: patient oriented x3 Extrem General: Yes full ROM Psych Speech and movement: Slowed movement present (Neuro) Affect: Labile affect present Assessment & Plan Assessment & Plan (1) Elevated bilirubin: Comment: Not forthcoming, detail very vague-somewhat tries to avoid answering questions Previous labs enzymes normal elevated bilirubin- ? syphilis-encouraged to have labs update Overall difficult to assess Code(s): R17 - Unspecified jaundice Plan: Update lab (2) Epigastric pain: Comment: Symptoms responsive to PPI however had not continued-reinforced Alcohol may likely play a role- Code(s): R10.13 - Epigastric pain Plan: Reviewed reflux precautions, avoidance of culprits to include alcohol Plan Follow back with PCP in regard to antibiotics that he had not taken Update labs today Continue omeprazole script sent Orders: Orders Syphilis Screen Today A53.0 - Latent syphilis, unspecified as early or late Medications: Changed From omeprazole 20 mg PO DAILY 30 caps 5RF To omeprazole 20 mg PO DAILY 30 days 30 caps 5RF Patient Instructions: A 31 y/o male seen initially with elevated bilirubin as well as epigastric pain acid reflux increased with alcohol and day recent bleed treated for syphilis however unsure if treatment has been completed-encouraged him to follow-up with his PCP He will continue omeprazole 20 mg daily, reflux precautions reviewed and an reinforced the avoidance of culprits to include alcohol Will see him back in 4 weeks for progress. He will call with any questions or concerns. Reinforced the importance of follow through Appreciate the opportunity assist in care the patient Coding Level of Care Code New Pt Level 2 (63558) Diagnoses Elevated bilirubin R17 Epigastric pain R10.13 Time Spent (min) 30
== END 2022-10-05 08:32 | disposition home or self-care (01) ==
PROVIDERS: PCP Internal Medicine; Visit Provider Physician Assistant
DX: R17 Unspecified jaundice (principal); R10.13 Epigastric pain
CPT/HCPCS: 99202; 99212

== ENCOUNTER → 2022-10-05 08:01 | Outpatient (BNVA) | payer OTHER, SELFPAY | PROVIDERS: PCP Internal Medicine; Visit Provider Physician Assistant | DX: R17 Unspecified jaundice (principal); R10.13 Epigastric pain | CPT/HCPCS: 99202 ==

== ENCOUNTER 2022-11-09 07:18 | Outpatient (AMB) | payer OTHER, SELFPAY ==
--- NOTE | 2022-11-09 07:33 | A.OFFVIS_ITS ---
Intake Vital Signs 11/09/22 07:35 Height 6 ft Weight 153 lb BMI 20.7 BP 133/78 Blood Pressure Location Lt brachial Position Sitting Pulse 73 Intake Visit Reasons: 5 week fu Intake Note: Patient follow up Patient cc: abdominal discomfort and constipation. Denies any other any other GI issues. 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 Last time we discussed labs showing positive RPR he said he had not taken prescribed medications at that time. Again is that he has not had time to go get blood work done, he has not been taking ppi- he continues to drink- he is not taking ppi He says hes tired- because he drank until 1a.m. beers liquor, smirnoff-smokes - did not get much sleep last night, did not want to come in today for the appointment Reviewd labs- again asked if he treated syphllis- he became abrupt, that I had mentioned it-(question asked normal tone voice, patient and I only , in the exam room with door shut completely, there was no one out side the door in our office area or in the other exam room). Then replied he had not taken the medication he has been busy not being able to get things done. No nausea, vomiting fever chills PFSH Medical History Asthma Pain in penis Surgical History No pertinent past surgical history Family History Mother No problems noted. Father No problems noted. Other Family history of diabetes mellitus (DM) Social History Housing: House Alcohol intake: current Alcohol intake frequency: a few times a week Patient Tobacco Use Status: Current everyday Tobacco user Tobacco use type: Cigarette Cigarettes Per Day: 5 e-Cigarette/Vaping Use: Never Used Second Hand Smoke Exposure: Yes Substance Use Type: Marijuana service: No Current occupational status: employed Current occupational exposures/hazards: No Cognitive needs: No Hearing needs: No Vision needs: No Review of Systems Const All systems reviewed & are unremarkable except as noted in HPI and below Denies chills and Denies fever(s) Physical Exam Vital Signs: Last Vital Signs Pulse 73 11/09/22 07:35 BP 133/78 11/09/22 07:35 BMI result Body Mass Index 20.7 Lying on exam table yawning, no eye contact not forthcoming Resp Effort & Inspection: normal respiratory effort and able to speak in complete sentences Auscultation: clear to auscultation bilaterally and no wheezes Cardio Rate: regular rate Rhythm: regular rhythm Heart sounds: S1 normal heart sound present and S2 normal heart sound present GI Palpation (GI): Soft to palpation and nontender Auscultation: normal bowel sounds Extrem General: Yes full ROM Psych Affect: Hostile affect present and Irritable affect present Attitude: Avoids eye contact (attititude/behavior) Assessment & Plan Assessment & Plan (1) Non-compliant patient: Code(s): Z91.199 - Patient's noncompliance with other medical treatment and regimen due to unspecified reason Plan: Reinforced importance of doing labs, following recommended advice, Schedule him to return after blood work- (2) Elevated bilirubin: Comment: As with previous visit, Not forthcoming, detail very vague-somewhat tries to avoid answering questions Previous labs enzymes normal elevated bilirubin- ? syphilis-encouraged to have labs update Overall difficult to assess Code(s): R17 - Unspecified jaundice (3) Positive serology for syphilis: Comment: Positive RPR he reports he is not follow treatment plan Discussed with patient in normal tone closed exam room- Code(s): A53.0 - Latent syphilis, unspecified as early or late Plan: encouraged, to follow through Plan Update labs, reinforced importance Patient Instructions: Update labs, reinforced importance Follow-up with PCP as well Lifestyle dietary changes Compliance encouraged Coding Level of Care Code Est Pt Level 4 (40573) Diagnoses Non-compliant patient Z91.199 Elevated bilirubin R17 Positive serology for syphilis A53.0 Time Spent (min) 30
[2022-11-09 07:35] VITALS: BP 133/78; PULSE 73; BMI 20.7
== END 2022-11-09 08:10 | disposition home or self-care (01) ==
PROVIDERS: PCP Internal Medicine; Visit Provider Physician Assistant
DX: Z91.199 Patient's noncompliance with other medical treatment and regimen due to unspecified reason (principal); R17 Unspecified jaundice; A53.0 Latent syphilis, unspecified as early or late
CPT/HCPCS: 99214

== ENCOUNTER → 2022-11-09 07:18 | Outpatient (BNVA) | payer OTHER, SELFPAY | PROVIDERS: PCP Internal Medicine; Visit Provider Physician Assistant | DX: R17 Unspecified jaundice (principal); A53.0 Latent syphilis, unspecified as early or late; Z91.199 Patient's noncompliance with other medical treatment and regimen due to unspecified reason | CPT/HCPCS: 99212 ==

== ENCOUNTER 2022-12-07 07:30 | Outpatient (AMB) | payer OTHER, SELFPAY ==
--- NOTE | 2022-12-07 07:42 | MHC.OFFVIS ---
Intake Vital Signs 12/07/22 07:45 Height 6 ft Weight 153 lb BMI 20.7 BP 106/69 Blood Pressure Location Lt brachial Position Sitting Pulse 61 Intake Visit Reasons: 5 week follow up Intake Note: Patient follow up for Elevated bilirubin Patient cc: abdominal discomfort. Denies any other GI issues. Shipping Support Required: No Accompanied by: Self / Same As Patient Allergies APPLE JUICE Adverse Reaction (Unknown, Uncoded 09/08/22 09:08) DIARRHEA HPI HPI Comments History of Present Illness Details A32 y/o male f/u from 11/09/22-he again has not taken ppi- he did not do labs He has had alcohol beer and shots- was his birthday-[employer]J. tob a pk a day- He hasn't seen pcp - he asks- [facility] Medical History (Updated 12/07/22 @ 07:57 by Adalgisa Bush PA-C) Pain in penis Asthma Surgical History No pertinent past surgical history Family History Mother No problems noted. Father No problems noted. Other Family history of diabetes mellitus (DM) Social History Housing: House Alcohol intake: current Alcohol intake frequency: a few times a week Patient Tobacco Use Status: Current everyday Tobacco user Tobacco use type: Cigarette Cigarettes Per Day: 5 e-Cigarette/Vaping Use: Never Used Second Hand Smoke Exposure: Yes Substance Use Type: Marijuana service: No Current occupational status: employed Current occupational exposures/hazards: No Cognitive needs: No Hearing needs: No Vision needs: No Review of Systems Const All systems reviewed & are unremarkable except as noted in HPI and below Card Denies chest pain and Denies dyspnea Resp Denies dyspnea GI Reports abdominal pain (when drinks), Denies hematochezia, Denies change in bowel habits, Reports heartburn, Denies nausea and Denies vomiting Physical Exam Const General: comfortable and no acute distress Orientation/consciousness: patient oriented x3 Limitations: no limitations Eyes Conjunctivae: conjunctival abnormal (injected bilat- no drainage) Resp Effort & Inspection: normal respiratory effort and able to speak in complete sentences Auscultation: rhonchi and no wheezes Cardio Rate: regular rate Rhythm: regular rhythm Heart sounds: S1 normal heart sound present and S2 normal heart sound present GI Palpation (GI): Soft to palpation and nontender Auscultation: normal bowel sounds Neuro General: patient oriented x3 Extrem General: Yes full ROM Psych Speech and movement: Clear speech present Affect: normal affect Attitude: cooperative Thought process: Normal thought process present Thought content: Normal thought content present Assessment & Plan Assessment & Plan (1) Epigastric pain: Comment: Symptoms responsive to PPI however had not continued-reinforced- again Alcohol may likely play a role-discussed risks Code(s): R10.13 - Epigastric pain (2) Non-compliant patient: Comment: Better spirits- more interactive today not taking ppi, labs not done- again reminded Code(s): Z91.199 - Patient's noncompliance with other medical treatment and regimen due to unspecified reason (3) Alcohol use: Comment: discussed risks Code(s): Z78.9 - Other specified health status Plan: discussed Plan refilled ppi to another pharmacy- 90 d supply refview reflux precautiond enecouraged labs reenforced risks. alcohol Medications: Changed From omeprazole 20 mg PO DAILY 30 days 30 caps 5RF To omeprazole 20 mg PO DAILY 90 days 90 caps 3RF Patient Instructions: refilled ppi to another pharmacy- 90 d supply refview reflux precautiond enecouraged labs reenforced risks. alcohol Make appt with pcp Coding Level of Care Code Est Pt Level 3 (86897) Diagnoses Epigastric pain R10.13 Non-compliant patient Z91.199 Alcohol use Z78.9 Time Spent (min) 20
[2022-12-07 07:45] VITALS: BP 106/69; PULSE 61; BMI 20.7
== END 2022-12-07 08:15 | disposition home or self-care (01) ==
PROVIDERS: PCP Internal Medicine; Visit Provider Physician Assistant
DX: R10.13 Epigastric pain (principal); Z91.199 Patient's noncompliance with other medical treatment and regimen due to unspecified reason; Z78.9 Other specified health status
CPT/HCPCS: 99213

== ENCOUNTER → 2022-12-07 07:30 | Outpatient (BNVA) | payer OTHER, SELFPAY | PROVIDERS: PCP Internal Medicine; Visit Provider Physician Assistant | DX: R10.13 Epigastric pain (principal); Z91.199 Patient's noncompliance with other medical treatment and regimen due to unspecified reason; Z78.9 Other specified health status | CPT/HCPCS: 99212 ==

== ENCOUNTER 2023-01-11 07:23 | Outpatient (AMB) | payer SELFPAY ==
[2023-01-11 07:34] VITALS: BP 121/65; PULSE 67; BMI 23.1
--- NOTE | 2023-01-11 07:34 | MHC.OFFVIS ---
Intake Vital Signs 01/11/23 07:34 Height 6 ft Weight 170 lb BMI 23.1 BP 121/65 Blood Pressure Location Lt brachial Position Sitting Pulse 67 Intake Visit Reasons: 4 week follow up epigastric pains Intake Note: Patient follow up for Epigastric pain Patient cc: Epigastric pain on and off. Denies any other GI issues. 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 He has not had time to get the lab. Asymptomatic today, except for tired stays up late at night No nausea, vomiting, abdominal pain, hematemesis, hematochezia fever chills PFSH Medical History Asthma Pain in penis Surgical History No pertinent past surgical history Family History Mother No problems noted. Father No problems noted. Other Family history of diabetes mellitus (DM) Social History Housing: House Alcohol intake: current Alcohol intake frequency: a few times a week Patient Tobacco Use Status: Current everyday Tobacco user Tobacco use type: Cigarette Cigarettes Per Day: 5 e-Cigarette/Vaping Use: Never Used Second Hand Smoke Exposure: Yes Substance Use Type: Marijuana service: No Current occupational status: employed Current occupational exposures/hazards: No Cognitive needs: No Hearing needs: No Vision needs: No Review of Systems Const All systems reviewed & are unremarkable except as noted in HPI and below GI Denies abdominal pain and Reports heartburn (improved) Physical Exam Vital Signs: Last Vital Signs Pulse 67 01/11/23 07:34 BP 121/65 01/11/23 07:34 BMI result Body Mass Index 23.1 Const General: comfortable, no acute distress and tired appearing Orientation/consciousness: patient oriented x3 Limitations: no limitations Resp Effort & Inspection: normal respiratory effort and able to speak in complete sentences Neuro General: patient oriented x3 Psych Affect: Labile affect present Attitude: cooperative and Avoids eye contact (attititude/behavior) Thought content: Normal thought content present Assessment & Plan Assessment & Plan (1) Alcohol use: Comment: discussed risks, again pleasantly- non compliant- Code(s): Z78.9 - Other specified health status Plan: encouraged- lifestyle modifications Do labs lessen etoh (2) Epigastric pain: Comment: Symptoms responsive to PPI however had not continued-reinforced- again Alcohol may likely play a role-discussed risks Code(s): R10.13 - Epigastric pain Plan Labs Consider lifestyle/change Patient Instructions: Encouraged to do blood work Reconsider alcohol consumption-lessen Encourage to call questions or concerns Coding Level of Care Code Est Pt Level 3 (74897) Diagnoses Alcohol use Z78.9 Epigastric pain R10.13 Time Spent (min) 25
== END 2023-01-11 08:08 | disposition home or self-care (01) ==
PROVIDERS: PCP Internal Medicine; Visit Provider Physician Assistant
DX: Z78.9 Other specified health status (principal); R10.13 Epigastric pain
CPT/HCPCS: 99213

== ENCOUNTER → 2023-01-11 07:23 | Outpatient (BNVA) | payer OTHER, SELFPAY | PROVIDERS: PCP Internal Medicine; Visit Provider Physician Assistant | DX: R10.13 Epigastric pain (principal); Z78.9 Other specified health status | CPT/HCPCS: 99212 ==

== ENCOUNTER 2023-06-05 15:38 | Outpatient (AMB) | payer OTHER, SELFPAY ==
--- NOTE | 2023-06-05 15:43 | MHC.PC.OV ---
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 Accompanied by: Self / Same As Patient Allergies APPLE JUICE Adverse Reaction (Unknown, Uncoded 06/05/23 16:02) DIARRHEA Medication List - Last Reconciled 06/05/23 by Araseli Gilliland MD omeprazole 20 mg PO DAILY 90 days Ventolin HFA 90 mcg/actuation (albuterol sulfate) 2 puffs inhalation Q6H PRN 30 days NS Tobacco use date assessed: 06/05/23 Dental Screening Dental Screen Date: 06/05/23 Did you have a dental visit in the last 12 months?: No Did you have a dental problem in the last 6 months where you did not have access to dental care?: No Was dental information given to patient?: Patient has dentist HPI HPI Comments History of Present Illness Details This is a 32-year-old male with chronic GERD and mild persistent asthma that comes today for follow-up on his conditions. PPIs work for his GERD. Use rescue inhaler less than once a month. Denies any chest pain or shortness of breath. [facility] Medical History (Updated 06/05/23 @ 17:13 by Araseli Gilliland MD) Pain in penis Asthma Surgical History No pertinent past surgical history Family History Mother No problems noted. Father No problems noted. Other Family history of diabetes mellitus (DM) Social History Housing: House Alcohol intake: current Alcohol intake frequency: a few times a week Patient Tobacco Use Status: Current everyday Tobacco user Tobacco use type: Cigarette Cigarettes Per Day: 10 e-Cigarette/Vaping Use: Never Used Second Hand Smoke Exposure: Yes Substance Use Type: Marijuana service: No Current occupational status: employed Current occupational exposures/hazards: No Cognitive needs: No Hearing needs: No Vision needs: No Questionnaire PHQ-9 Over the last 2 weeks, how often have you been bothered by any of the following problems? 1. Little interest or pleasure in doing things: not at all 2. Feeling down, depressed, or hopeless: not at all 3. Trouble falling or staying asleep, or sleeping too much: not at all 4. Feeling tired or having little energy: not at all 5. Poor appetite or overeating: not at all 6. Feeling bad about yourself - or that you are a failure or have let yourself or your family down: not at all 7. Trouble concentrating on things, such as reading the newspaper or watching television: not at all 8. Moving or speaking so slowly that other people could have noticed. Or the opposite - being so fidgety or restless that you have been moving around a lot more than usual: not at all 9. Thoughts that you would be better off or of hurting yourself in some way: not at all Total score: 0 Depression Screening Interpretation: Negative Depression Screening Done: Yes 48400 - PHQ-9 Billing: Yes Source: Developed by Drs. Alvaro New, Debbie Zhang, Zafar Jiménez and colleagues, with an educational sade from [employer]. Thrive Questionnaire Date Thrive assessed: 06/05/23 I am a: Patient What is your living situation today?: I have a steady place to live Within the past 12 months, did the food you bought not last and you didn't have the money to get more?: Never true Within the past 12 months, did you worry whether your food would run out before you got money to buy more?: Never true Do you have trouble paying for medicines?: No Do you have trouble getting transportation to medical appointments?: No Do you have trouble paying your heating and electricity bill?: No Do you have trouble taking care of your child, family member or friend?: No Do you have trouble with day-to-day activities such as bathing, preparing meals, shopping, managing finances, etc.?: No Are you currently unemployed and looking for a job?: No Are you interested in more education?: No Please select the resources that you would like help with: None Currently or been in a relationship where the following occur: no concerns reported THRIVE Score: 0 AUDIT C Alcohol Use Questionnaire (AUDIT-C) 1. How often do you have a drink containing alcohol?: 2-3 times a week 2. How many drinks containing alcohol do you have on a typical day when you are drinking?: 1 or 2 3. How often do you have six or more drinks on one occasion?: Never Total Score: 3 OZZIE-7 AMB Questionnaire OZZIE-7 Date OZZIE - 7 assessed: 06/05/23 Feeling nervous, anxious, or on edge: 0 = Not at all Not being able to stop or control worryin = Not at all Worrying too much about different things: 0 = Not at all Trouble relaxin = Not at all Being so restless that it is hard to sit still: 0 = Not at all Becoming easily annoyed or irritable: 0 = Not at all Feeling afraid as if something awful might happen: 0 = Not at all Total OZZIE-7 score (0-4 normal; 5-9 mild; 10-14 moderate; 15-21 severe): 0 Source: Developed by Drs. Alvaro New, Debbie Zhang, Zafar Jiménez and colleagues, with an educational sade from [employer]. OZZIE-7 Assessment Billing OZZIE-7 Assessment Tool: OZZIE-7 Assessment 80325 Review of Systems Const All systems reviewed & are unremarkable except as noted in HPI and below Eyes Reports no additional complaints, Denies change in vision and Denies other visual disturbances Card Denies chest pain at rest, Denies chest pain with activity, Denies edema, Denies irregular heart rhythm, Denies claudication, Denies dyspnea, Denies dyspnea on exertion, Denies orthopnea, Denies paroxysmal nocturnal dyspnea and Denies slow heart rate Resp Denies cough, Denies dyspnea and Denies dyspnea on exertion GI Denies abdominal pain, Denies change in bowel habits, Denies excessive flatus, Denies nausea and Denies vomiting Denies urinary hesitancy, Denies urinary incontinence and Denies urinary urgency Physical exam (Primary Care) Vital Signs: Last Vital Signs BP 102/60 06/05/23 15:44 BMI result Body Mass Index 21.3 Tobacco/Smoking Status: Tobacco use Status Tobacco use date assessed 06/05/23 06/05/23 15:48 Patient Tobacco Use Status Current everyday Tobacco 06/05/23 15:48 Tobacco use type Cigarette 06/05/23 15:48 e-Cigarette/Vaping Use Never Used 06/05/23 15:48 PHQ-9: PHQ-9 Score PHQ-9: Total score 0 06/05/23 16:05 Depression Screening Interpretation: Negative Thrive Assessment: Date of Thrive Assessment Date Thrive assessed 06/05/23 06/05/23 15:48 Currently or been in a relationship where the following occur: no concerns reported Resp Effort & Inspection: normal respiratory effort Auscultation: clear to auscultation bilaterally Cardio Jugular venous distension: no JVD Rate: regular rate Rhythm: regular rhythm Heart sounds: S1 normal heart sound present and S2 normal heart sound present Extrem General: Yes full ROM Assessment and Plan Assessment & Plan (1) Mild persistent asthma: Code(s): J45.30 - Mild persistent asthma, uncomplicated Qualifiers: Asthma complication type: uncomplicated Qualified Code(s): J45.30 - Mild persistent asthma, uncomplicated Plan: Use rescue inhaler as needed. (2) Chronic GERD: Code(s): K21.9 - Gastro-esophageal reflux disease without esophagitis Plan: Use PPIs as needed. Medications: Refilled omeprazole 20 mg PO DAILY 90 caps 3RF 90 days Ventolin HFA 90 mcg/actuation (albuterol sulfate) 2 puffs inhalation Q6H PRN 8 grams 0RF shortness of breath or wheezing 30 days NS Coding Level of Care Code Est Pt Level 3 (12239) Diagnoses Mild persistent asthma without complication J45.30 Asthma complication type: uncomplicated Chronic GERD K21.9 Additional Codes OZZIE-7 Assessment Billing - OZZIE-7 Assessment Tool: OZZIE-7 Assessment 11772 ([id number]) Time Spent (min) 19
[2023-06-05 15:44] VITALS: BP 102/60; BMI 21.3
== END 2023-06-05 16:13 | disposition home or self-care (01) ==
PROVIDERS: PCP Internal Medicine; Visit Provider Internal Medicine
DX: J45.30 Mild persistent asthma, uncomplicated (principal); K21.9 Gastro-esophageal reflux disease without esophagitis
CPT/HCPCS: 99213

== ENCOUNTER 2023-09-03 14:13 | Emergency (ER) | payer OTHER, SELFPAY ==
[2023-09-03 14:30] VITALS: BP 112/70; PULSE 70; RESP 16; TEMP 36.6; O2SAT 98; BMI 23.1
--- NOTE | 2023-09-03 14:38 | ED.GENADULT ---
HPI - General Adult General Chief complaint: General Medical Stated complaint: suture removal Time Seen by Provider: 09/03/23 14:34 Source: patient and RN notes reviewed Mode of arrival: ambulatory Limitations: no limitations History of Present Illness ED Provider: Salome Kendall PA-C [facility] narrative: This is a 32-year-old male, with no known medical problems, who presents emergency department for suture removal. Patient was seen at [facility] on Monday of last week. He had 4 sutures placed after accidentally lacerated his left thumb any sharp objects at work. He reports he is currently on antibiotics, which he takes 3 times a day. He is unsure what this medication is. He denies any fevers, chills, drainage or discharge from region. He states that he was told to follow-up in 7 days to have sutures removed. No other complaints or concerns at this time. MD complaint: Suture removal Onset (ago): day(s) Location: upper extremity Radiation: non-radiation Relieving factors: none Exacerbating factors: none Associated symptoms: denies other symptoms Treatments prior to arrival: none Related Data Previous Rx's ?Medication ?Instructions ?Recorded Ventolin HFA 90 mcg/actuation 2 puff inhalation Q6H PRN 06/05/23 aerosol inhaler (albuterol sulfate) shortness of breath or wheezing 30 days #8 grams omeprazole 20 mg capsule,delayed 20 mg PO DAILY 90 days #90 caps 06/05/23 release Allergies Allergy/AdvReac Type Severity Reaction Status Date / Time APPLE JUICE AdvReac Unknown DIARRHEA Uncoded 09/03/23 14:32 Review of Systems Review of Systems: Yes all other systems are reviewed and are negative Constitutional: Constitutional: Reports as per [facility] Past Medical History Medical History Asthma Pain in penis Surgical History No pertinent past surgical history Family History Family History Mother No problems noted. Father No problems noted. Other Family history of diabetes mellitus (DM) Social History Social History Housing: House Alcohol intake: current Alcohol intake frequency: a few times a week Patient Tobacco Use Status: Current everyday Tobacco user Tobacco use type: Cigarette Cigarettes Per Day: 10 e-Cigarette/Vaping Use: Never Used Second Hand Smoke Exposure: Yes Substance Use Type: Marijuana service: No Current occupational status: employed Current occupational exposures/hazards: No Cognitive needs: No Hearing needs: No Vision needs: No Physical Exam ED Vital Signs: Vital Signs - 24 hr 09/03/23 14:30 Temperature 97.8 F Pulse Rate 70 Respiratory Rate 16 Blood Pressure 112/70 Pulse Oximetry 98 Oxygen Delivery Method Room Air BMI result Body Mass Index 23.1 Const General: cooperative, comfortable and no acute distress Orientation/consciousness: patient oriented x3 Limitations: no limitations HENMT Head: Yes normal to inspection, Yes normocephalic and Yes atraumatic Ears: hearing grossly normal bilaterally General nose exam: Normal external nose present Face and sinus: Yes normal facial exam Mouth: Normal oral and palatal mucosa present, oropharynx normal and moist mucous membranes Throat: Yes posterior oropharynx normal Eyes General: appearance normal, both eyes and all related structures Eyelids: Yes eyelids normal Conjunctivae: conjunctivae normal Sclerae: sclerae normal Pupils: Equal, round and reactive pupils present EOM: EOMs intact bilaterally Neck Neck: Yes normal visual inspection, Yes full ROM and Yes no lymphadenopathy Lymphatic: no lymphadenopathy noted Chest Chest palpation & inspection: normal inspection of the chest Resp Effort & Inspection: normal respiratory effort and able to speak in complete sentences Auscultation: clear to auscultation bilaterally, no crackles, no rales, no rhonchi and no wheezes Cardio Rate: regular rate Rhythm: regular rhythm Heart sounds: S1 normal heart sound present and S2 normal heart sound present GI Inspection: Yes normal to inspection Skin Other: Left thumb dorsal aspect there is a 2 cm healing laceration with [address] No surrounding erythema or warmth. No drainage. Full range of motion of the left thumb without difficulty. General skin exam: no rashes or lesions noted Trauma: no lacerations or abrasions Wounds: no wounds Neuro General: patient oriented x3 and moves all extremities Cranial nerves: Yes Equal, round and reactive pupils present Extrem General: Yes normal to inspection Right upper extremity: normal to inspection Left upper extremity: normal to inspection Right lower extremity: normal to inspection Left lower extremity: normal to inspection Medical Decision Making Medical Decision Making MDM Narrative: This is a 32-year-old male who presents emergency department for suture removal. On arrival, vital signs within normal limits. He has a healing laceration noted to his left thumb. He had these placed 6 days ago. Appearance of the wound is not infectious however it is too early for the sutures to be removed. Patient understands and will return or follow-up with PCP for suture removal. Does not appear to be infected however advised to continue taking at home medication. He understands agrees with plan. Patient stable for discharge. Differential Diagnosis Differential Diagnoses: The differential diagnosis associated with the presentation includes Wound dehiscence, cellulitis, laceration, abrasion Discharge Plan Discharge Clinical Impression: Visit for wound check Patient Disposition: Home, Self-Care Instructions: Care For Your Stitches (ED) Additional Instructions: You were seen in the emergency department for suture removal. It is too soon for your sutures to be removed, typically when you get sutures on your fingers, you need to wait 10-14 days. You may return back here or your PCP on Monday to have your sutures removed. Watch for any signs of infection, including but not limited to increased redness, drainage, fevers, chills, swelling, difficulty moving your digits, please return for re-evaluation. Continue taking your antibiotics as prescribed. Prescriptions: No Action omeprazole 20 mg capsule,delayed release(DR/EC) 20 mg PO DAILY 90 Days Qty: 90 3RF albuterol sulfate [Ventolin HFA] 90 mcg/actuation HFA aerosol inhaler 2 puff inhalation Q6H PRN (Reason: shortness of breath or wheezing) 30 Days Qty: 8 0RF Print Language: Malay
[2023-09-03 14:45] VITALS: BP 112/70; PULSE 70; RESP 16; TEMP 36.6; O2SAT 98
== END 2023-09-03 14:49 | disposition home or self-care (01) ==
LOC: HO.ED 14:46
PROVIDERS: Emergency Provider Emergency Medicine; PCP Internal Medicine
DX: Z48.00 Encounter for change or removal of nonsurgical wound dressing (principal)
CPT/HCPCS: 99282

== ENCOUNTER 2023-09-06 08:00 | Emergency (ER) | payer OTHER, SELFPAY ==
[2023-09-06 08:04] VITALS: BP 110/66; PULSE 64; RESP 16; TEMP 36.9; O2SAT 97; BMI 23.1
--- NOTE | 2023-09-06 09:08 | ED_ITS ---
HPI - General Adult General Chief complaint: Wound/Laceration Stated complaint: stitch removal Time Seen by Provider: 09/06/23 09:05 Source: patient Mode of arrival: ambulatory Limitations: no limitations History of Present Illness ED Provider: Barbara Parrish PA-C HPI narrative: Patient is a 32 year old assigned male at with a history of GERD and alcohol use presenting to the emergency department today for suture removal. Patient states that on 08/28/2023 he had 4 sutures placed in his left thumb. Patient states that it is healing well and he is here for suture removal. Patient denies any dizziness, lightheadedness, abdominal pain, nausea, vomiting, fever, chills, blurry vision, double vision, loss of vision, chest pain, difficulty breathing, shortness of breath, back pain, night sweats, pain with urination, increased urinary frequency, increased urinary urgency, blood in his urine or stool, syncope or a near syncopal episode, bowel incontinence, bladder incontinence, or any other complaints at this time. Relieving factors: none Exacerbating factors: none Associated symptoms: denies other symptoms Treatments prior to arrival: none Related Data Previous Rx's ?Medication ?Instructions ?Recorded Ventolin HFA 90 mcg/actuation 2 puff inhalation Q6H PRN 06/05/23 aerosol inhaler (albuterol sulfate) shortness of breath or wheezing 30 days #8 grams omeprazole 20 mg capsule,delayed 20 mg PO DAILY 90 days #90 caps 06/05/23 release Allergies Allergy/AdvReac Type Severity Reaction Status Date / Time APPLE JUICE AdvReac Unknown DIARRHEA Uncoded 09/06/23 08:05 Review of Systems Constitutional: Constitutional: Reports no additional constitutional complaints, Denies chills, Denies fever(s) and Denies night sweats Eyes: Eyes: Reports no additional eye complaints, Denies blurry vision, Denies change in vision, Denies diplopia, Denies eye discharge, Denies loss of vision and Denies eye pain ENT: Denies dizziness Cardiovascular: Cardiovascular: Reports no additional cardiovascular complaints, Denies chest pain, Denies lightheadedness, Denies Loss of Consciousness and Denies dyspnea Respiratory: Respiratory: Reports no additional respiratory complaints and Denies dyspnea Gastrointestinal: Gastrointestinal: Reports no additional gastrointestinal complaints, Denies abdominal pain, Denies melena, Denies hematochezia, Denies change in bowel habits and Denies change in stool character Genitourinary: Genitourinary: Reports no additional male genitourinary complaints, Denies hematuria, Denies oliguria, Denies difficulty urinating, Denies dysuria, Denies urinary frequency, Denies urinary hesitancy, Denies urinary incontinence and Denies urinary urgency Musculoskeletal: Musculoskeletal: Reports no additional musculoskeletal complaints, Denies numbness and Denies tingling Comments: 4 nylon sutures present in the dorsal le ft thumb Neurologic: Denies dizziness, Denies loss of vision, Denies numbness and Denies tingling Psychiatric: Psychiatric: Reports no additional psychiatric complaints Endocrine: Endocrine: Reports no additional endocrine complaints Hematologic/Lymphatic: Hematologic/Lymphatic: Reports no additional hematologic/lymphatic complaints Allergic/Immunologic: Allergic/Immunologic: Reports no additional allergic/immunologic complaints PMFSH Past Medical History Attestation statement: The following information was validated with the patient. Source: old records reviewed and nursing notes reviewed Medical History Pain in penis Asthma Surgical History No pertinent past surgical history Family History Family History Mother No problems noted. Father No problems noted. Other Family history of diabetes mellitus (DM) Social History Social History Housing: House Alcohol intake: current Alcohol intake frequency: a few times a week Patient Tobacco Use Status: Current everyday Tobacco user Tobacco use type: Cigarette Cigarettes Per Day: 10 e-Cigarette/Vaping Use: Never Used Second Hand Smoke Exposure: Yes Substance Use Type: Marijuana Advance Directives: No Advance Directives Information Provided: Yes service: No Current occupational status: employed Current occupational exposures/hazards: No Cognitive needs: No Hearing needs: No Vision needs: No Physical Exam ED Vital Signs: Vital Signs - 24 hr 09/06/23 08:04 09/06/23 09:22 Temperature 98.5 F 98.2 F Pulse Rate 64 66 Respiratory Rate 16 14 Blood Pressure 110/66 114/86 Pulse Oximetry 97 100 Oxygen Delivery Method Room Air Room Air BMI result Body Mass Index 23.1 Const General: cooperative, no acute distress, alert and awake Nutritional Appearance: well nourished Orientation/consciousness: patient oriented x3 Limitations: no limitations HENMT Head: Yes normal to inspection and Yes atraumatic Ears: hearing grossly normal bilaterally and external ears normal General nose exam: Normal external nose present, no nasal discharge noted and no epistaxis Face and sinus: Yes normal facial exam, No abrasion and No laceration Mouth: Normal oral and palatal mucosa present, no drooling and no muffled voice Eyes General: appearance normal, both eyes and all related structures Periorbital: periorbital findings normal Eyelids: Yes eyelids normal Conjunctivae: conjunctivae normal Pupils: Equal, round and reactive pupils present EOM: EOMs intact bilaterally Neck Neck: Yes normal visual inspection, Yes full ROM and Yes no lymphadenopathy Chest Chest palpation & inspection: normal inspection of the chest Resp Effort & Inspection: normal respiratory effort and able to speak in complete sentences GI Inspection: Yes normal to inspection Neuro General: patient oriented x3 and moves all extremities Cranial nerves: Yes Equal, round and reactive pupils present Cognition (Neuro): normal cognition Extrem Other: [address] in the dorsal left thumb General: Yes full ROM and Yes capillary refill normal Psych Appearance: grossly normal Mental Status: mental status grossly normal Affect: normal affect Attitude: cooperative Thought process: Normal thought process present Thought content: Normal thought content present Insight: Good insight present (Psych) Procedures Procedure Narrative Procedure Narrative: Removed 4 sutures from the dorsal left thumb, without incident. Patient's PMS was intact prior to and after suture removal. Medical Decision Making Medical Decision Making MDM Narrative: Patient is a 32 year old assigned male at with a history of GERD and alcohol use presenting to the emergency department today for suture removal. Patient's physical exam was as noted in the physical exam portion of this note. I explained my physical exam findings to the patient. I answered all questions asked by the patient. Patient's sutures were removed without incident. I stressed the importance of the patient taking his medication as directed (either prescribed or as the over the counter packaging recommends). I stressed the importance of the patient following up with his primary care provider. I stressed the importance of the patient returning to the emergency department immediately if his symptoms were to worsen or if he were to develop any dizziness, shortness of breath, difficulty breathing, chest pain, blurry vision, loss of vision, nausea, vomiting, abdominal pain, fever, chills, back pain, or any other complaints. Patient verbalized agreement and understanding with this treatment plan and discharge. Differential Diagnosis Differential Diagnoses: The differential diagnosis associated with the presentation includes Suture removal Admission/Observation Consideration of admission/observation: Escalation of care including admission/observation considered Patient would have been admitted to the hospital had his clinical presentation warranted hospital admission. Discharge Plan Discharge Clinical Impression: Encounter for removal of sutures Patient Disposition: Home, Self-Care Instructions: Stitches Removal (ED) Additional Instructions: Follow up with your primary care provider. Return to the emergency department immediately if your symptoms worsen or if you develop any dizziness, shortness of breath, difficulty breathing, chest pain, blurry vision, loss of vision, nausea, vomiting, abdominal pain, fever, chills, back pain, or any other complaints. Prescriptions: No Action omeprazole 20 mg capsule,delayed release(DR/EC) 20 mg PO DAILY 90 Days Qty: 90 3RF albuterol sulfate [Ventolin HFA] 90 mcg/actuation HFA aerosol inhaler 2 puff inhalation Q6H PRN (Reason: shortness of breath or wheezing) 30 Days Qty: 8 0RF Referrals: Araseli Grey MD [Primary Care Provider] - Stand Alone Forms: Work/School Release Interventions: ED Discharge Assessment Last Done: 09/06/23 09:22 Discharge Date/Time: 09/06/23 09:22 Print Language: Bahraini
[2023-09-06 09:22] VITALS: BP 114/86; PULSE 66; RESP 14; TEMP 36.8; O2SAT 100
== END 2023-09-06 09:22 | disposition home or self-care (01) ==
PROVIDERS: Emergency Provider Emergency Medicine; PCP Internal Medicine
DX: Z48.02 Encounter for removal of sutures (principal)
CPT/HCPCS: 99282

== ENCOUNTER 2023-12-05 07:28 | Outpatient (AMB) | payer OTHER, SELFPAY ==
--- NOTE | 2023-12-05 07:33 | MHC.PC.OV ---
Vital Signs 12/05/23 07:34 Height 6 ft Weight 154 lb BMI 20.9 BP 112/64 Blood Pressure Location Lt brachial Position Sitting Intake Visit Reasons: annual exam Intake Note: Patient here for an Annual Physical Exam Licensed Physical Therapist Required: No Accompanied by: Self / Same As Patient Allergies APPLE JUICE Adverse Reaction (Unknown, Uncoded 12/05/23 07:42) DIARRHEA Medication List - Last Reconciled 12/05/23 by Araseli Gilliland MD Ventolin HFA 90 mcg/actuation (albuterol sulfate) 2 puffs inhalation Q6H PRN 30 days NS Tobacco use date assessed: 12/05/23 Dental Screening Dental Screen Date: 06/05/23 HPI HPI Comments History of Present Illness Details This is a 32-year-old male that comes for his physical exam. No family history of cancer. Declines flu vaccine today but is thinking about having it when he had a day off. Complains of pain in feet that was relieved with gabapentin and patient is aware that gabapentin can make him sleepy. [facility] Medical History (Updated 12/05/23 @ 07:59 by Araseli Gilliland MD) Pain in penis Asthma Surgical History No pertinent past surgical history Family History Mother No problems noted. Father No problems noted. Other Family history of diabetes mellitus (DM) Social History Housing: House Alcohol intake: current Alcohol intake frequency: a few times a week Patient Tobacco Use Status: Current everyday Tobacco user Tobacco use type: Cigarette Cigarettes Per Day: 2 e-Cigarette/Vaping Use: Never Used Second Hand Smoke Exposure: Yes Substance Use Type: Marijuana service: No Current occupational status: employed Current occupational exposures/hazards: No Cognitive needs: No Hearing needs: No Vision needs: No Questionnaire PHQ-9 Over the last 2 weeks, how often have you been bothered by any of the following problems? 1. Little interest or pleasure in doing things: not at all 2. Feeling down, depressed, or hopeless: not at all 3. Trouble falling or staying asleep, or sleeping too much: not at all 4. Feeling tired or having little energy: nearly every day 5. Poor appetite or overeating: not at all 6. Feeling bad about yourself - or that you are a failure or have let yourself or your family down: not at all 7. Trouble concentrating on things, such as reading the newspaper or watching television: not at all 8. Moving or speaking so slowly that other people could have noticed. Or the opposite - being so fidgety or restless that you have been moving around a lot more than usual: not at all 9. Thoughts that you would be better off or of hurting yourself in some way: not at all Total score: 3 Depression Screening Interpretation: Positive Depression Screening Follow-up: Existing condition and Follow-up Visit Requested Depression Screening Done: Yes 78290 - PHQ-9 Billing: Yes Source: Developed by Drs. Alvaro New, Debbie Zhang, Zafar Jiménez and colleagues, with an educational sade from [employer]. Thrive Questionnaire Date Thrive assessed: 06/05/23 I am a: Patient What is your living situation today?: I have a steady place to live Within the past 12 months, did the food you bought not last and you didn't have the money to get more?: Sometimes True Within the past 12 months, did you worry whether your food would run out before you got money to buy more?: I choose not to answer this question Do you have trouble paying for medicines?: I choose not to answer this question Do you have trouble getting transportation to medical appointments?: I choose not to answer this question Do you have trouble paying your heating and electricity bill?: I choose not to answer this question Do you have trouble taking care of your child, family member or friend?: I choose not to answer this question Do you have trouble with day-to-day activities such as bathing, preparing meals, shopping, managing finances, etc.?: I choose not to answer this question Are you currently unemployed and looking for a job?: I choose not to answer this question Are you interested in more education?: I choose not to answer this question Please select the resources that you would like help with: Food and None Currently or been in a relationship where the following occur: I choose not to answer THRIVE Score: 1 AUDIT C Alcohol Use Questionnaire (AUDIT-C) 1. How often do you have a drink containing alcohol?: 2-4 times a month 2. How many drinks containing alcohol do you have on a typical day when you are drinking?: 1 or 2 3. How often do you have six or more drinks on one occasion?: Less than monthly Total Score: 3 OZZIE-7 AMB Questionnaire OZZIE-7 Date OZZIE - 7 assessed: 06/05/23 Feeling nervous, anxious, or on edge: 0 = Not at all Not being able to stop or control worryin = Not at all Worrying too much about different things: 0 = Not at all Trouble relaxin = Not at all Being so restless that it is hard to sit still: 0 = Not at all Becoming easily annoyed or irritable: 0 = Not at all Feeling afraid as if something awful might happen: 0 = Not at all Total OZZIE-7 score (0-4 normal; 5-9 mild; 10-14 moderate; 15-21 severe): 0 Source: Developed by Drs. Alvaro New, Debbie Zhang, Zafar Jiménez and colleagues, with an educational sade from [employer]. OZZIE-7 Assessment Billing OZZIE-7 Assessment Tool: OZZIE-7 Assessment 28846 Review of Systems Const All systems reviewed & are unremarkable except as noted in HPI and below Card Denies chest pain at rest, Denies chest pain with activity, Denies edema, Denies irregular heart rhythm, Denies claudication, Denies dyspnea, Denies dyspnea on exertion, Denies orthopnea, Denies paroxysmal nocturnal dyspnea and Denies slow heart rate Resp Denies cough, Denies dyspnea and Denies dyspnea on exertion GI Denies abdominal pain, Denies change in bowel habits, Denies excessive flatus, Denies nausea and Denies vomiting Patricio/Lymph Denies easy bleeding and Denies easy bruising Aller/Immun Denies urticaria Physical exam (Primary Care) Vital Signs: Last Vital Signs BP 112/64 12/05/23 07:34 BMI result Body Mass Index 20.9 Tobacco/Smoking Status: Tobacco use Status Tobacco use date assessed 12/05/23 12/05/23 07:39 Patient Tobacco Use Status Current everyday Tobacco 12/05/23 07:39 Tobacco use type Cigarette 12/05/23 07:39 e-Cigarette/Vaping Use Never Used 12/05/23 07:39 PHQ-9: PHQ-9 Score PHQ-9: Total score 3 12/05/23 07:47 Depression Screening Interpretation: Positive Depression Screening Follow-up: Existing condition and Follow-up Visit Requested Thrive Assessment: Date of Thrive Assessment Date Thrive assessed 06/05/23 12/05/23 07:39 Currently or been in a relationship where the following occur: I choose not to answer Const Orientation/consciousness: patient oriented x3 HENHI Head: Yes normal to inspection, Yes normocephalic and Yes atraumatic Ears: external ears normal Eyes General: appearance normal, both eyes and all related structures Eyelids: Yes eyelids normal Conjunctivae: conjunctivae normal Neck Neck: Yes normal visual inspection and Yes supple Resp Effort & Inspection: normal respiratory effort Auscultation: clear to auscultation bilaterally Cardio Jugular venous distension: no JVD Rate: regular rate Rhythm: regular rhythm Heart sounds: S1 normal heart sound present and S2 normal heart sound present GI Inspection: Yes normal to inspection Palpation (GI): Soft to palpation and nontender Auscultation: normal bowel sounds Skin General skin exam: no rashes or lesions noted Neuro General: patient oriented x3 and no focal motor deficits Extrem General: Yes full ROM Psych Appearance: grossly normal Office Procedures Flu Questionnaire Does the patient have a severe egg allergy?: No Immunizations Fluarix Triv [id number] (PF) 45 mcg (15 mcg x 3)/0.5 mL IM syringe Performing Provider: Araseli Gilliland MD [facility] Documented (not given) by: NARENDRA Moncada on 12/05/23 07:56 Reason Not Given: Patient Refused Coding Level of Care Code Est Pt Level 3 (66034) Est Pt Prev Care 18-39y(07427) Diagnoses Physical exam Z00.00 Pain in both feet M79.671; M79.672 Additional Codes OZZIE-7 Assessment Billing - OZZIE-7 Assessment Tool: OZZIE-7 Assessment 93592 ([id number]) Time Spent (min) 33 Assessment & Plan Assessment & Plan (1) Physical exam: Code(s): Z00.00 - Encounter for general adult medical examination without abnormal findings Category: Medical Plan: Repeat in a year. (2) Pain in both feet: Code(s): M79.671 - Pain in right foot; M79.672 - Pain in left foot Category: Medical Plan: Restart gabapentin. Medications: New gabapentin 100 mg PO BEDTIME 90 days 90 caps 1RF Refilled Ventolin HFA 90 mcg/actuation (albuterol sulfate) 2 puffs inhalation Q6H 30 days PRN 8 grams 0RF shortness of breath or wheezing NS
[2023-12-05 07:34] VITALS: BP 112/64; BMI 20.9
== END 2023-12-05 07:52 | disposition home or self-care (01) ==
PROVIDERS: PCP Internal Medicine; Visit Provider Internal Medicine
DX: Z00.00 Encounter for general adult medical examination without abnormal findings (principal); M79.671 Pain in right foot; M79.672 Pain in left foot; Z23 Encounter for immunization

== ENCOUNTER → 2023-12-05 07:28 | Outpatient (BNVA) | payer OTHER, SELFPAY | PROVIDERS: PCP Internal Medicine; Visit Provider Internal Medicine | DX: Z00.01 Encounter for general adult medical examination with abnormal findings (principal); M79.671 Pain in right foot; M79.672 Pain in left foot; Z28.21 Immunization not carried out because of patient refusal | CPT/HCPCS: 90471; 96127 ==

== ENCOUNTER 2023-12-27 09:37 | Outpatient (REF) | payer OTHER, SELFPAY ==
[2023-12-27 14:12] LABS: CT PCR NOT DETECTED (Not Detect.); NG PCR NOT DETECTED (Not Detect.)
[2023-12-28 08:33] LABS: HIV AB/AG Nonreactive (Nonreactive); HIV Num 1 0.05 S/CO (0.00-0.99)
== END 2023-12-27 09:38 | disposition home or self-care (01) ==
LOC: HO.LAB 09:37
PROVIDERS: PCP Internal Medicine; Visit Provider Internal Medicine
DX: Z11.3 Encounter for screening for infections with a predominantly sexual mode of transmission (principal)
CPT/HCPCS: 87389; 87491; 87591

== ENCOUNTER 2024-03-06 14:43 | Outpatient (REF) | payer OTHER, SELFPAY ==
[2024-03-06 15:48] LABS: Color Urine Yellow; Glucose Urine UA Negative (Negative); Leukocyte Esterase Urine Negative (Negative); Nitrite Urine Negative (Negative); Specific Gravity - Urine >= 1.030 (1.005-1.025); Urine Blood Negative (Negative); Urine Ketones Negative (Negative); Urine Protein Negative (Neg-Trace)
[2024-03-06 15:58] LABS: Appearance Urine Clear
== END 2024-03-06 14:44 | disposition home or self-care (01) ==
LOC: HO.LAB 14:43
PROVIDERS: PCP Internal Medicine; Visit Provider Internal Medicine
DX: Z20.2 Contact with and (suspected) exposure to infections with a predominantly sexual mode of transmission (principal)
CPT/HCPCS: 81003

== ENCOUNTER 2024-03-26 10:12 | Outpatient (AMB) | payer OTHER, SELFPAY ==
--- NOTE | 2024-03-26 10:16 | A.OFFPC_ITS ---
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 Accompanied by: Self / Same As Patient Allergies APPLE JUICE Adverse Reaction (Unknown, Uncoded 03/26/24 10:25) DIARRHEA Medication List - Last Reconciled 03/26/24 by Araseli Gilliland MD gabapentin 100 mg PO BEDTIME 90 days Ventolin HFA 90 mcg/actuation (albuterol sulfate) 2 puffs inhalation Q6H PRN 30 days NS Tobacco use date assessed: 03/26/24 Dental Screening Dental Screen Date: 03/26/24 Did you have a dental visit in the last 12 months?: No Did you have a dental problem in the last 6 months where you did not have access to dental care?: No Was dental information given to patient?: Patient has dentist HPI HPI Comments History of Present Illness Details This is a 33-year-old male with asthma that comes today wanting to sexually transmitted disease screening which he just had it. He denies any lesion in penis. He insists in getting tested for herpes but I said if there is no active lesion you can not be tested. Denies any dysuria or any other urinary complaint. Asthma well controlled with rescue inhaler. No fever. I advised to start using safe sex practice such as condoms. PFSH Medical History Pain in penis Asthma Surgical History No pertinent past surgical history Family History Mother No problems noted. Father No problems noted. Other Family history of diabetes mellitus (DM) Social History Housing: House Alcohol intake: current Alcohol intake frequency: a few times a week Patient Tobacco Use Status: Former Tobacco user Tobacco use type: Cigarette Cigarettes Per Day: 2 e-Cigarette/Vaping Use: Never Used Second Hand Smoke Exposure: Yes Substance Use Type: Marijuana service: No Current occupational status: employed Current occupational exposures/hazards: No Cognitive needs: No Hearing needs: No Vision needs: No Questionnaire PHQ-9 Over the last 2 weeks, how often have you been bothered by any of the following problems? 1. Little interest or pleasure in doing things: not at all 2. Feeling down, depressed, or hopeless: not at all 3. Trouble falling or staying asleep, or sleeping too much: not at all 4. Feeling tired or having little energy: not at all 5. Poor appetite or overeating: not at all 6. Feeling bad about yourself - or that you are a failure or have let yourself or your family down: not at all 7. Trouble concentrating on things, such as reading the newspaper or watching television: not at all 8. Moving or speaking so slowly that other people could have noticed. Or the opposite - being so fidgety or restless that you have been moving around a lot more than usual: not at all 9. Thoughts that you would be better off or of hurting yourself in some way: not at all Total score: 0 Depression Screening Interpretation: Negative Depression Screening Done: Yes 99248 - PHQ-9 Billing: Yes Source: Developed by Drs. Alvaro New, Debbie Zhang, Zafar Jiménez and colleagues, with an educational sade from [employer]. Thrive Questionnaire Date Thrive assessed: 03/26/24 I am a: Patient What is your living situation today?: I have a steady place to live Within the past 12 months, did the food you bought not last and you didn't have the money to get more?: Never true Within the past 12 months, did you worry whether your food would run out before you got money to buy more?: Never true Do you have trouble paying for medicines?: No Do you have trouble getting transportation to medical appointments?: No Do you have trouble paying your heating and electricity bill?: No Do you have trouble taking care of your child, family member or friend?: No Do you have trouble with day-to-day activities such as bathing, preparing meals, shopping, managing finances, etc.?: No Are you currently unemployed and looking for a job?: No Are you interested in more education?: No Please select the resources that you would like help with: None Currently or been in a relationship where the following occur: No concerns reported THRIVE Score: 0 AUDIT C Alcohol Use Questionnaire (AUDIT-C) 1. How often do you have a drink containing alcohol?: 2-4 times a month 2. How many drinks containing alcohol do you have on a typical day when you are drinking?: 1 or 2 3. How often do you have six or more drinks on one occasion?: Less than monthly Total Score: 3 OZZIE-7 AMB Questionnaire OZZIE-7 Date OZZIE - 7 assessed: 03/26/24 Feeling nervous, anxious, or on edge: 0 = Not at all Not being able to stop or control worryin = Not at all Worrying too much about different things: 0 = Not at all Trouble relaxin = Not at all Being so restless that it is hard to sit still: 0 = Not at all Becoming easily annoyed or irritable: 0 = Not at all Feeling afraid as if something awful might happen: 0 = Not at all Total OZZIE-7 score (0-4 normal; 5-9 mild; 10-14 moderate; 15-21 severe): 0 Source: Developed by Drs. Alvaro New, Debbie Zhang, Zafar Jiménez and colleagues, with an educational sade from [employer]. OZZIE-7 Assessment Billing OZZIE-7 Assessment Tool: OZZIE-7 Assessment 06514 Review of Systems Const All systems reviewed & are unremarkable except as noted in HPI and below Denies urinary hesitancy, Denies urinary incontinence and Denies urinary urgency Skin/Breast Denies bleeding lesions, Denies changing lesions and Denies rash Physical exam (Primary Care) Vital Signs: Last Vital Signs BP 110/70 03/26/24 10:18 BMI result Body Mass Index 20.5 Tobacco/Smoking Status: Tobacco use Status Tobacco use date assessed 03/26/24 03/26/24 10:23 Patient Tobacco Use Status Former Tobacco user 03/26/24 10:23 Tobacco use type Cigarette 03/26/24 10:23 e-Cigarette/Vaping Use Never Used 03/26/24 10:23 PHQ-9: PHQ-9 Score PHQ-9: Total score 0 03/26/24 10:28 Depression Screening Interpretation: Negative Thrive Assessment: Date of Thrive Assessment Date Thrive assessed 03/26/24 03/26/24 10:23 Currently or been in a relationship where the following occur: No concerns reported Skin General skin exam: no rashes or lesions noted Extrem General: Yes full ROM Coding Level of Care Code Est Pt Level 3 (26621) Complex EM visit Add On G2211 Diagnoses Mild persistent asthma without complication J45.30 Asthma complication type: uncomplicated Screen for STD (sexually transmitted disease) Z11.3 Additional Codes OZZIE-7 Assessment Billing - OZZIE-7 Assessment Tool: OZZIE-7 Assessment 99469 ([id number]) PHQ-9 - 64742 - PHQ-9 Billing: Yes ([id number]) Time Spent (min) 19 Assessment & Plan Assessment & Plan (1) Mild persistent asthma: Code(s): J45.30 - Mild persistent asthma, uncomplicated Category: Medical Qualifiers: Asthma complication type: uncomplicated Qualified Code(s): J45.30 - Mild persistent asthma, uncomplicated Plan: Use rescue inhaler as needed. (2) Screen for STD (sexually transmitted disease): Code(s): Z11.3 - Encounter for screening for infections with a predominantly sexual mode of transmission Category: Medical Plan: He just got tested recently and at the present moment there is no clinical indication to repeat this test. Medications: Refilled gabapentin 100 mg PO BEDTIME 90 caps 1RF 90 days Ventolin HFA 90 mcg/actuation (albuterol sulfate) 2 puffs inhalation Q6H PRN 8 grams 0RF shortness of breath or wheezing 30 days NS
[2024-03-26 10:18] VITALS: BP 110/70; BMI 20.5
== END 2024-03-26 10:32 | disposition home or self-care (01) ==
PROVIDERS: PCP Internal Medicine; Visit Provider Internal Medicine
DX: J45.30 Mild persistent asthma, uncomplicated (principal); Z11.3 Encounter for screening for infections with a predominantly sexual mode of transmission

== ENCOUNTER → 2024-03-26 10:12 | Outpatient (BNVA) | payer OTHER, SELFPAY | PROVIDERS: PCP Internal Medicine; Visit Provider Internal Medicine | DX: J45.30 Mild persistent asthma, uncomplicated (principal) | CPT/HCPCS: 96127 ==